=== PATIENT | male | born 1945 | race Caucasian/White ===

== ENCOUNTER 2017-09-22 17:53 | Emergency (ER) | payer MEDICARE, OTHER ==
[2017-09-22 18:04] VITALS: BP 131/88; PULSE 76; RESP 18; TEMP 98.2
--- NOTE | 2017-09-22 18:48 | ED ---
General Adult HPI - General Chief complaint: Head Injury Stated complaint: [facility]-Fall Time Seen by Provider: 09/22/17 18:12 Source: patient, RN notes reviewed Mode of arrival: ambulatory Limitations: no limitations - History of Present Illness Initial comments: 71-year-old male presents to the emergency determine for a chief complaint of head injury 1.5 hours. 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 Patient states he fell backwards onto the backpack vacuum and hit his head against the carpet floor. Patient denies any loss of consciousness. Patient denies any blood thinners besides the 81 mg baby aspirin. He shouldn't has a mild headache at this time. Patient denies any visual changes, nausea or vomiting, or confusion. Patient has no other complaints at this time including shortness of breath, chest pain, abdominal pain, nausea or vomiting, headache, or visual changes. - Related Data Home Medications Medication Instructions Recorded Confirmed Losartan Potassium [Cozaar] 100 mg PO DAILY 11/22/14 01/27/16 Omeprazole [PriLOSEC] 20 mg PO AC-BRKFST 11/22/14 01/27/16 Multivitamin [Men's Multi-Vitamin] 1 tab PO DAILY 08/13/15 01/27/16 [place]-3 Fatty Acids/Fish Oil [Fish 1 cap PO DAILY 08/13/15 01/27/16 Oil 1,000 mg Softgel] Vitamin B Complex 1 cap PO DAILY 08/13/15 01/27/16 Aspirin EC [Ecotrin Low Dose] 81 mg PO DAILY 01/27/16 01/27/16 Baclofen 10 mg PO TID 01/27/16 01/27/16 Glucosamine-Chondr 500-400Mg 2 tab PO DAILY 01/27/16 01/27/16 Hydrochlorothiazide [Hydrodiuril] 12.5 mg PO DAILY 01/27/16 01/27/16 Pravastatin Sodium [Pravachol] 40 mg PO DAILY 01/27/16 01/27/16 Primidone [Mysoline] 50 mg PO TID PRN 01/27/16 01/27/16 Tart Mcl[place] Extract 1 tab PO DAILY 01/27/16 01/27/16 Zolpidem [Ambien] 10 mg PO HS 01/27/16 01/27/16 Previous Rx's Medication Instructions Recorded Nitroglycerin Sl Tabs [Nitrostat] 0.4 mg SUBLINGUAL Q5M PRN #25 tab 11/29/14 Tamsulosin [Flomax] 0.4 mg PO HS cap.er.24h 11/29/14 Allergies Allergy/AdvReac Type Severity Reaction Status Date / Time No Known Allergies Allergy Verified 09/22/17 18:05 Review of Systems ROS Statement: Those systems with pertinent positive or pertinent negative responses have been documented in the HPI. ROS Other: All systems not noted in ROS Statement are negative. Past Medical History Past Medical History: Coronary Artery Disease (CAD), GERD/Reflux, Hyperlipidemia , Hypertension, Myocardial Infarction ([place]), Osteoarthritis (OA), Prostate Disorder Additional Past Medical History / Comment(s): HYPOGLYCEMIA Last Myocardial Infarction Date:: 2007 History of Any Multi-Drug Resistant Organisms: None Reported Past Surgical History: Back Surgery, Heart Catheterization With Stent, Orthopedic Surgery Additional Past Surgical History / Comment(s): HEART CATH X 3 WITH STENTS , DWIGHT. ROTATOR CUFF, LUMBAR BACK SURGERY,RIGHT KNEE SURGERY Past Anesthesia/Blood Transfusion Reactions: No Reported Reaction Additional Past Anesthesia/Blood Transfusion Reaction / Comment(s): PT IS ALERT AND PLEASANT, INDEPENDANT. LIVES AT HOME WITH HIS WHOM IS CURRENTLY UNDER HOSPICE CARE. 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 Date of Last Stent Placement:: 11/28/14 Past Psychological History: No Psychological Hx Reported Smoking Status: Never smoker Past Alcohol Use History: None Reported Past Drug Use History: None Reported - Past Family History Mother Family Medical History: No Reported History Additional Family Medical History / Comment(s): HX TB- HAD SURGERY TO REMOVED LUMP IN BREAST- PT NOT SURE IF CA OR NOT. General Exam Limitations: no limitations General appearance: alert, in no apparent distress Head exam: Present: normocephalic, normal inspection, other (There is a 2cm x 2 cm contusion on left superior posterior parietal scalp. Small abrasion noted over contusion. No lacerations. ) Eye exam: Present: normal appearance, PERRL, EOMI, other (negative raccoon sign) . Absent: scleral icterus, conjunctival injection, nystagmus, periorbital swelling, periorbital tenderness Pupils: Present: normal accommodation ENT exam: Present: normal exam, normal oropharynx (uvula midline), mucous membranes moist, TM's normal bilaterally (no hemotympanum ), normal external ear exam (negative lan sign) Neck exam: Present: normal inspection, full ROM. Absent: tenderness, meningismus, lymphadenopathy Respiratory exam: Present: normal lung sounds bilaterally. Absent: respiratory distress, wheezes, rales, rhonchi, stridor Cardiovascular Exam: Present: regular rate, normal rhythm, normal heart sounds. Absent: systolic murmur, diastolic murmur, rubs, gallop, clicks Extremities exam: Present: other (strength 5/5 in upper and lower extremities bilaterally. Negative arm drift. Shoulder shrug 5/5) Back exam: Present: normal inspection, full ROM. Absent: tenderness Neurological exam: Present: alert, oriented X3, CN II-XII intact, other (GCS 15) Psychiatric exam: Present: normal affect, normal mood Course Vital Signs 09/22/17 18:01 Temperature 98.2 F Pulse Rate 76 Respiratory 18 Rate Blood Pressure 131/88 O2 Sat by Pulse 99 Oximetry Medical Decision Making - Medical Decision Making 71-year-old male presents to the emergency department for chief complaint of head injury about 1.5 hours ago. Patient fell backwards wearing a backpack vacuum and hit his head on a carpeted floor. Patient did not lose consciousness. He denies any nausea vomiting, confusion, visual changes. He does have a mild headache. He does not use blood thinners. On exam no focal neuro deficits. Patient is sitting comfortably and communicating efficiently. He is pleasant. GCS 15. Or is a contusion on the left posterior superior parietal scalp with a small abrasion. No lacerations. I discussed the risks versus the benefits of CAT scan and patient agrees to have a CAT scan done to rule out any bleeds or fractures. CAT scan brain shows no acute intracranial hemorrhage, mass effect, or midline shift. CT c-spine shows no acute fracture or dislocation. Patient will be discharged home to monitor himself outpatient. He will monitor for any nausea vomiting, confusion, or severe headache and return if that occurs. Patient's daughter will help. He will take Tylenol for pain. He will follow up with primary care in 1-2 days. He is aware he can return to the emergency department if needed at all. Disposition Clinical Impression: Contusion of scalp, Closed head injury Disposition: HOME SELF-CARE Condition: Good Instructions: Concussion (ED), Head Injury (ED) Additional Instructions: Please take Tylenol for pain. Please monitor herself for any nausea vomiting confusion or other worsening symptoms. Return to the emergency department if you have any of these. Otherwise follow-up with primary care in 1-2 days. Is patient prescribed a controlled substance at d/c from ED?: No Referrals: Misha Brown MD [Primary Care Provider] - 1-2 days Time of Disposition: 19:02
--- NOTE | 2017-09-22 19:29 | CT ---
EXAMINATION TYPE: CT brain penelope degroot DATE OF EXAM: 09/22/2017 COMPARISON: NONE HISTORY: Fall, hematoma on left parietal area. CT DLP: 1416.8 mGycm Automated exposure control for dose reduction was used. TECHNIQUE: CT scan of the head and cervical spine are performed without contrast. FINDINGS: There is no acute intracranial hemorrhage, mass effect, or midline shift identified. The ventricles and sulci are within normal limits in size. The globes are intact and the visualized sin uses are clear. Cervical spine is visualized in its entirety from C1 through upper thoracic levels and demonstrates s atisfactory alignment without evidence of acute fracture or dislocation. Prevertebral soft tissue ap pears within normal limits. Moderately advanced multilevel cervical spondylosis changes are noted. Th e C1-C2 articulation is unremarkable. IMPRESSION: 1. There is no acute fracture or dislocation evident in the cervical spine. 2. No acute intracranial hemorrhage, mass effect, or midline shift is seen.
== END 2017-09-22 19:45 | disposition home or self-care (01) ==
LOC: EC 17:53
DX: S00.03XA Contusion of scalp, initial encounter (principal); R40.2410 Glasgow coma scale score 13-15, unspecified time; I25.10 Atherosclerotic heart disease of native coronary artery without angina pectoris; K21.9 Gastro-esophageal reflux disease without esophagitis; E78.5 Hyperlipidemia, unspecified; I10 Essential (primary) hypertension; I25.2 Old myocardial infarction; N42.9 Disorder of prostate, unspecified; Z79.82 Long term (current) use of aspirin; Z79.899 Other long term (current) drug therapy; Z95.5 Presence of coronary angioplasty implant and graft; W01.198A Fall on same level from slipping, tripping and stumbling with subsequent striking against other object, initial encounter; Y99.0 Civilian activity done for income or pay
CPT/HCPCS: 70450; 72125; 99283

== ENCOUNTER → 2018-03-24 | Outpatient (CLI) | payer MEDICARE ==
--- NOTE | 2018-03-24 09:59 | US ---
EXAMINATION TYPE: US carotid duplex BILAT DATE OF EXAM: 03/24/2018 COMPARISON: NONE CLINICAL HISTORY: I25.1Atherosclerotic heart disease of [place] coron. Syncope EXAM MEASUREMENTS: RIGHT: Peak Systolic Velocity (PSV) cm/sec ----- Right CCA: 89.5 ----- Right ICA: 80.1 ----- Right ECA: 106 ICA/CCA ratio: 0.9 RIGHT: End Diastole cm/sec ----- Right CCA: 19.3 ----- Right ICA: 26.1 ----- Right ECA: 12.6 LEFT: Peak Systolic Velocity (PSV) cm/sec ----- Left CCA: 131 ----- Left ICA: 91.7 ----- Left ECA: 94.1 ICA/CCA ratio: 0.7 LEFT: End Diastole cm/sec ----- Left CCA: 19.4 ----- Left ICA: 32.9 ----- Left ECA: 12.5 VERTEBRALS (direction of flow): Right Vertebral: Antegrade Left Vertebral: Antegrade Rhythm: Normal Mild amount of plaque visualized in right bulb. Elevated velocities visualized within the left tortuo us proximal CCA. IMPRESSION: No evidence for hemodynamically significant stenosis. Criteria for Assigning % of Stenosis / Diameter reduction (Estimation based on the indirect measurements of the internal carotid artery velocities (ICA PSV). 1. Normal (no stenosis)=ICA PSV < 125 cm/s: ratio < 2.0: ICA EDV<40 cm/s. 2. Less than 50% stenosis=ICA PSV < 125 cm/s: ratio < 2.0: ICA EDV<40 cm/s. 3. 50 to 69% stenosis=ICA PSV of 125 to 230 cm/s: ration 2.0 ? 4.0: ICA EDV 40-100 cm/s. 4. Greater than 70% stenosis to near occlusion= ICA PSV > 230 cm/s: ratio > 4.0: ICA EDV > 100 cm/s. 5. Near occlusion= ICA PSV velocities may be low or undetectable: variable ratio and ICA EDV. 6. Total occlusion=unable to detect flow.
== END | disposition home or self-care (01) ==
LOC: RADUSWWP 09:04
PROVIDERS: ATTEND Family Medicine
DX: I25.10 Atherosclerotic heart disease of native coronary artery without angina pectoris (principal); I10 Essential (primary) hypertension; R55 Syncope and collapse
CPT/HCPCS: 93880

== ENCOUNTER 2019-08-28 14:34 | Inpatient (IN) | payer MEDICARE, OTHER ==
[2019-08-28] MEDS ORDERED: NITROGLYCERIN SL TABS 0.4 MG TAB SUBLINGUAL PRN ×2 (14:44→16:23)
[2019-08-28] MEDS ORDERED: ATORVASTATIN 80 MG TAB PO STA (14:49)
[2019-08-28] MEDS ORDERED: NITROGLYCERIN OINT 1 INCH/GM PACKET TOPICAL STA (14:50)
[2019-08-28] MEDS ORDERED: HEPARIN SODIUM,PORCINE 5,000 UNIT/ML 1 ML VIAL IV ONE (14:50)
[2019-08-28] MEDS ORDERED: HEPARIN SODIUM,PORCINE 5,000 UNIT/ML 1 ML VIAL IV PRN (14:50)
[2019-08-28 14:52] LABS: Basophils # (A) 0.1 k/uL (0-0.2); Basophils % (A) 2 %; Eosinophils # (A) 0.2 k/uL (0-0.7); Eosinophils % (A) 3 %; HCT 43.2 % (39.0-53.0); HGB 14.1 gm/dL (13.0-17.5); Lymphocytes # (A) 1.5 k/uL (1.0-4.8); Lymphocytes % (A) 21 %; MCH 29.2 pg (25.0-35.0); MCHC 32.6 g/dL (31.0-37.0); MCV 89.5 fL (80.0-100.0); Mean Platelet Volume 8.7; Monocytes # (A) 0.4 k/uL (0-1.0); Monocytes % (A) 5 %; Neutrophils # (A) 4.7 k/uL (1.3-7.7); Neutrophils % (A) 66 %; Platelet Count 174 k/uL (150-450); RBC 4.83 m/uL (4.30-5.90); RDW 13.2 % (11.5-15.5)
[2019-08-28] MEDS ORDERED: METOPROLOL TARTRATE 25 MG TAB PO STA ×2 (14:53→22:25)
--- NOTE | 2019-08-28 15:01 | XR ---
EXAMINATION TYPE: XR chest 1V portable DATE OF EXAM: 08/28/2019 COMPARISON: Chest x-ray January 27, 2016. HISTORY: Chest pain. ST elevated myocardial infarction. TECHNIQUE: Single AP portable frontal upright view of the chest is obtained. Second derick out image saved to PACS. FINDINGS: There is chronic right pleural changes without suspicious new focal air space opacity, ple ural effusion, or pneumothorax seen. The cardiac silhouette size is stable and upper limits of [place] l without focal sclerotic changes aortic knob. Surgical changes right humeral head is present. Degene rative change bilateral shoulders is seen. IMPRESSION: Chronic changes without acute pulmonary process.
[2019-08-28 15:06] LABS: INR 0.9 (<1.2); Prothrombin Time 9.9 sec (9.0-12.0)
[2019-08-28 15:19] LABS: D-Dimer 1.32 mg/L FEU (<0.60)
[2019-08-28 15:29] LABS: Albumin 4.2 g/dL (3.5-5.0); Calcium 10.1 mg/dL (8.4-10.2); Potassium 4.1 mmol/L (3.5-5.1); Total Bilirubin 0.5 mg/dL (0.2-1.3); Total Protein 7.1 g/dL (6.3-8.2)
[2019-08-28] MEDS: HEPARIN SOD,PORK IN 0.45% NACL 25,000 UNIT in 0.45% NACL 1 250ML.BAG IV SCH (15:30)
--- NOTE | 2019-08-28 15:59 | ED ---
Chest Pain HPI - General Chief Complaint: Chest Pain Stated Complaint: STEMI Time Seen by Provider: 08/28/19 14:43 Source: patient, EMS, RN notes reviewed Mode of arrival: EMS Limitations: no limitations - History of Present Illness Initial Comments: This is a 73-year-old male with a history of prior heart disease with cardiac stents times for the last in 2014 who presents with complaints of the onset of retrosternal chest pain is started sometime after approximately 12:30 today initial report was that it started about 20 minutes prior to his arrival. Patient states the pain was 8/10-9/10 severity nonradiating he denies any shortness breath fevers chills or sweats he did state however that felt very similar to his previous cardiac events. EMS was called he was transported here he was given aspirin his EKG on the monitors done by paramedics showed evidence of ST depression in inferior leads with possible elevation in leads 1 and aVL. This does seem to improve with the second one. Upon arrival a patient at 5/10 pain. MD Complaint: chest pain - Related Data Home Medications Medication Instructions Recorded Confirmed Losartan Potassium [Cozaar] 100 mg PO DAILY 11/22/14 01/27/16 Omeprazole [PriLOSEC] 20 mg PO AC-BRKFST 11/22/14 01/27/16 Multivitamin [Men's Multi-Vitamin] 1 tab PO DAILY 08/13/15 01/27/16 [place]-3 Fatty Acids/Fish Oil [Fish 1 cap PO DAILY 08/13/15 01/27/16 Oil 1,000 mg Softgel] Vitamin B Complex 1 cap PO DAILY 08/13/15 01/27/16 Aspirin EC [Ecotrin Low Dose] 81 mg PO DAILY 01/27/16 01/27/16 Baclofen 10 mg PO TID 01/27/16 01/27/16 Glucosamine-Chondr 500-400Mg 2 tab PO DAILY 01/27/16 01/27/16 Hydrochlorothiazide [Hydrodiuril] 12.5 mg PO DAILY 01/27/16 01/27/16 Pravastatin Sodium [Pravachol] 40 mg PO DAILY 01/27/16 01/27/16 Primidone [Mysoline] 50 mg PO TID PRN 01/27/16 01/27/16 Tart Mcl[place] Extract 1 tab PO DAILY 01/27/16 01/27/16 Zolpidem [Ambien] 10 mg PO HS 01/27/16 01/27/16 Previous Rx's Medication Instructions Recorded Nitroglycerin Sl Tabs [Nitrostat] 0.4 mg SUBLINGUAL Q5M PRN #25 tab 11/29/14 Tamsulosin [Flomax] 0.4 mg PO HS cap.er.24h 11/29/14 Allergies Allergy/AdvReac Type Severity Reaction Status Date / Time No Known Allergies Allergy Verified 09/22/17 18:05 Review of Systems ROS Statement: Those systems with pertinent positive or pertinent negative responses have been documented in the HPI. ROS Other: All systems not noted in ROS Statement are negative. EKG Findings - EKG Results: EKG: interpreted by JAE, sinus rhythm (EKG showed normal sinus rhythm a 69. Interval 132 QRS duration 94 QT since QTC 44/432 no evidence of acute ST-T wave changes at this time this didn't correlate with EKG dated 01/27/16) Past Medical History Past Medical History: Coronary Artery Disease (CAD), GERD/Reflux, Hyperlipidemia, Hypertension, Myocardial Infarction ([place]), Osteoarthritis (OA), Prostate Disorder Additional Past Medical History / Comment(s): HYPOGLYCEMIA Last Myocardial Infarction Date:: 2007 History of Any Multi-Drug Resistant Organisms: None Reported Past Surgical History: Back Surgery, Heart Catheterization With Stent, Orthopedic Surgery Additional Past Surgical History / Comment(s): HEART CATH X 3 WITH STENTS , DWIGHT. ROTATOR CUFF, LUMBAR BACK SURGERY,RIGHT KNEE SURGERY Past Anesthesia/Blood Transfusion Reactions: No Reported Reaction Additional Past Anesthesia/Blood Transfusion Reaction / Comment(s): PT IS ALERT AND PLEASANT, INDEPENDANT. LIVES AT HOME WITH HIS WHOM IS CURRENTLY UNDER HOSPICE CARE. 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 Date of Last Stent Placement:: 11/28/14 Past Psychological History: No Psychological Hx Reported Smoking Status: Never smoker Past Alcohol Use History: None Reported Past Drug Use History: None Reported - Past Family History Mother Family Medical History: No Reported History Additional Family Medical History / Comment(s): HX TB- HAD SURGERY TO REMOVED LUMP IN BREAST- PT NOT SURE IF CA OR NOT. General Exam - General Exam Comments Initial Comments: This is a well-developed well-nourished awake alert oriented 3 male Limitations: no limitations General appearance: alert, anxious Head exam: Present: atraumatic, normocephalic, normal inspection Eye exam: Present: normal appearance, PERRL, EOMI. Absent: scleral icterus, conjunctival injection, periorbital swelling ENT exam: Present: normal exam, mucous membranes moist Neck exam: Present: normal inspection, full ROM, other (Stridor JVD or bruits). Absent: tenderness, meningismus, lymphadenopathy Respiratory exam: Present: normal lung sounds bilaterally. Absent: respiratory distress, wheezes, rales, rhonchi, stridor Cardiovascular Exam: Present: regular rate, normal rhythm, normal heart sounds. Absent: systolic murmur, diastolic murmur, rubs, gallop, clicks GI/Abdominal exam: Present: soft, normal bowel sounds. Absent: distended, tenderness, guarding, rebound, rigid Extremities exam: Present: normal inspection, full ROM, normal capillary refill. Absent: tenderness, pedal edema, joint swelling, calf tenderness Back exam: Present: normal inspection Neurological exam: Present: alert, oriented X3, CN II-XII intact Psychiatric exam: Present: normal affect, normal mood Skin exam: Present: warm, dry, intact, normal color. Absent: rash Course Vital Signs 08/28/19 08/28/19 14:41 14:57 Temperature 98.0 F Pulse Rate 74 69 Respiratory 18 18 Rate Blood Pressure 174/100 151/95 O2 Sat by Pulse 100 99 Oximetry - Reevaluation(s) Reevaluation #1: 08/28/19 15:57 Repeat EKG done approximately one half hour after arrival showed a sinus rhythm of 66. Interval 134 QRS duration 100 QT since QTC 44/423 evidence of LVH old inferior changes this actually looks similar to the earlier one today. Reevaluation #2: 08/28/19 16:22 Patient showing much improved no pain at this time his CAT scan was negative for evidence of pulmonary embolism. 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 Disposition Clinical Impression: Unstable angina pectoris, Chest pain Disposition: ADMITTED IP TO THIS [facility] Condition: Fair Referrals: Misha Brown MD [Primary Care Provider] - 1-2 days
--- NOTE | 2019-08-28 16:12 | CT ---
EXAMINATION TYPE: CT angio chest DATE OF EXAM: 08/28/2019 COMPARISON: Chest x-ray earlier today HISTORY: SOB, CHEST PAIN, ELEVATED D-DIMER CT DLP: 330.2 mGycm. Automated Exposure Control for Dose Reduction was Utilized. CONTRAST: CTA scan of the thorax is performed with IV Contrast, patient injected with 80 mL of Isovue 370, pulm onary embolism protocol. MIP Images are created on CT scanner and reviewed. FINDINGS: LUNGS: Examination was suboptimal as there is respiratory motion artifact degradation particularly in her level of lung bases. Dependent opacity over the fissures and lower lungs along with mild central opacity felt to reflect alveolar edema and atelectatic change is seen. No pleural effusion or pneumo thorax noted. No suspicious focal consolidation. MEDIASTINUM: There is satisfactory enhancement of the pulmonary artery and its branches, there is no CT evidence for pulmonary embolism. There are no greater than 1 cm hilar or mediastinal lymph nodes. Trace pericardial effusion is seen. Stable mild cardiomegaly. OTHER: Multilevel vacuum disc phenomenon and mild to moderate disc space narrowing or thoracolumbar j unction. Bilateral subareolar gynecomastia noted. IMPRESSION: No CT evidence for acute pulmonary embolism. Correlate for CHF exacerbation as there is m ild cardiomegaly with suspected mild central alveolar edema.
[2019-08-28] MEDS ORDERED: PRIMIDONE 50 MG TAB PO PRN (16:26)
[2019-08-28] MEDS: SODIUM CHLORIDE 0.9% 1,000 ML IV SCH (17:27)
[2019-08-28] MEDS: TAMSULOSIN 0.4 MG CAP.ER.24H PO SCH (20:32)
[2019-08-28] MEDS: BACLOFEN 10 MG TAB PO SCH (20:32)
[2019-08-28] MEDS: ZOLPIDEM 10 MG TAB PO SCH (20:32)
[2019-08-29] MEDS: HYDROCHLOROTHIAZIDE 12.5 MG CAP PO SCH (05:57)
[2019-08-29] MEDS: ASPIRIN 325 MG TAB PO SCH (05:58)
[2019-08-29] MEDS: LOSARTAN 50 MG TAB PO SCH (05:58)
[2019-08-29] MEDS: PANTOPRAZOLE 40 MG TABLET PO SCH (05:59)
[2019-08-29] MEDS: METOPROLOL TARTRATE 25 MG TAB PO SCH ×2 (05:59→19:36)
[2019-08-29] MEDS: BACLOFEN 10 MG TAB PO SCH ×3 (05:59→19:36)
[2019-08-29 06:37] LABS: Basophils % (A) 1 %; Eosinophils # (A) 0.3 k/uL (0-0.7); Eosinophils % (A) 6 %; HCT 40.4 % (39.0-53.0); HGB 13.7 gm/dL (13.0-17.5); Lymphocytes # (A) 1.2 k/uL (1.0-4.8); Lymphocytes % (A) 25 %; MCHC 33.8 g/dL (31.0-37.0); MCV 88.8 fL (80.0-100.0); Mean Platelet Volume 8.4; Monocytes # (A) 0.3 k/uL (0-1.0); Monocytes % (A) 5 %; Neutrophils # (A) 2.9 k/uL (1.3-7.7); Neutrophils % (A) 61 %; Platelet Count 164 k/uL (150-450); RBC 4.55 m/uL (4.30-5.90); RDW 13.3 % (11.5-15.5); WBC 4.8 k/uL (3.8-10.6)
[2019-08-29 08:18] LABS: Cholesterol 184 mg/dL (<200); HDL Cholesterol 52 mg/dL (40-60); LDL Cholesterol,Calculated 111 mg/dL (0-99); Triglycerides 107 mg/dL (<150)
[2019-08-29] MEDS ORDERED: ALPRAZolam 0.5 MG TAB PO PRN (08:30)
[2019-08-29] MEDS ORDERED: ATORVASTATIN 80 MG TAB PO STA (08:30)
[2019-08-29] MEDS ORDERED: NITROGLYCERIN SL TABS 0.4 MG TAB SUBLINGUAL PRN (08:30)
[2019-08-29] MEDS ORDERED: SODIUM CHLORIDE 0.9% 1,000 ML in EMPTY BAG 1 BAG IV ONE (08:30)
[2019-08-29] MEDS ORDERED: ALPRAZolam 0.25 MG TAB PO PRN (08:30)
[2019-08-29] MEDS ORDERED: ASPIRIN 325 MG TAB PO STA (08:30)
[2019-08-29] MEDS ORDERED: NON FORMULARY DRUG (Omega-3 Fatty Acids/Fish Oil [Fish Oil 1,000 Mg Softgel] 1 CAP) PO SCH (09:00)
[2019-08-29] MEDS ORDERED: PRAVASTATIN SODIUM 40 MG TAB PO SCH (09:00)
--- NOTE | 2019-08-29 10:31 | P.CRDCN ---
History of Present Illness Consult date: 08/29/19 Requesting physician: Fady Merrill Consult reason: non-Q-wave MS, chest pain Chief complaint: Chest pain History of present illness: This is a 73-year-old gentleman who follows regularly with Dr. Mendoza in the office. He has a known history of hypertension, hyperlipidemia, RCA stenting in 2010, circumflex stenting in 2014. He presented to the hospital with symptoms of chest pressure with radiation across the chest. Symptoms started around noon and persisted until around 4:00. He was seen in consultation by Dr. Smiley. His chest x-ray did not reveal any acute changes, CTA of the chest was performed which did not reveal any evidence of a PE. First EKG showed a normal sinus rhythm with no acute changes. Subsequent EKG showed normal sinus rhythm with mild inferior ST-T wave changes. White blood cell count 4.8, hemoglobin 13.7, platelet count 164. D-dimer 1.32. Sodium 134, potassium 4.1, BUN 28, creatinine 0.9. Troponin 0.02, 74.7, 18.4. Wall virus not detected. At the time of examination this morning patient was currently chest pain-free. A stat echocardiogram with Doppler study has been ordered and patient has been recommended to undergo cardiac catheterization. The risks and the benefits were explained to the patient in detail and he is willing to proceed. This will be performed today by Dr. Mendoza. Past Medical History Past Medical History: Coronary Artery Disease (CAD), GERD/Reflux, Hyperlipidemia, Hypertension, Myocardial Infarction (MS), Osteoarthritis (OA), Prostate Disorder Additional Past Medical History / Comment(s): HYPOGLYCEMIA Last Myocardial Infarction Date:: 2014 History of Any Multi-Drug Resistant Organisms: None Reported Past Surgical History: Back Surgery, Heart Catheterization With Stent, Or thopedic Surgery Additional Past Surgical History / Comment(s): HEART CATH X 3 WITH STENTS , DWIGHT. ROTATOR CUFF, LUMBAR BACK SURGERY,RIGHT KNEE SURGERY Past Anesthesia/Blood Transfusion Reactions: No Reported Reaction Additional Past Anesthesia/Blood Transfusion Reaction / Comment(s): PT IS ALERT AND PLEASANT, INDEPENDANT. LIVES AT HOME WITH HIS WHOM IS CURRENTLY UNDER HOSPICE CARE. 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 Date of Last Stent Placement:: 11/28/14 Past Psychological History: No Psychological Hx Reported Smoking Status: Never smoker Past Alcohol Use History: None Reported Past Drug Use History: None Reported - Past Family History Mother Family Medical History: No Reported History Additional Family Medical History / Comment(s): HX TB- HAD SURGERY TO REMOVED LUMP IN BREAST- PT NOT SURE IF CA OR NOT. Medications and Allergies Home Medications Medication Instructions Recorded Confirmed Type Losartan Potassium [Cozaar] 100 mg PO DAILY 11/22/14 08/28/19 History Tamsulosin [Flomax] 0.4 mg PO HS cap.er.24h 11/29/14 08/28/19 Rx Multivitamin [Men's Multi-Vitamin] 1 tab PO DAILY 08/13/15 08/28/19 History [place]-3 Fatty Acids/Fish Oil [Fish 1 cap PO DAILY 08/13/15 08/28/19 History Oil 1,000 mg Softgel] Vitamin B Complex 1 cap PO DAILY 08/13/15 08/28/19 History Aspirin EC [Ecotrin Low Dose] 81 mg PO DAILY 01/27/16 08/28/19 History Baclofen 10 mg PO TID 01/27/16 08/28/19 History Hydrochlorothiazide [Hydrodiuril] 12.5 mg PO DAILY 01/27/16 08/28/19 History Primidone [Mysoline] 50 mg PO TID PRN 01/27/16 08/28/19 History Ezetimibe [Zetia] 10 mg PO HS 08/28/19 08/28/19 History Glucosam/Fred-Msm1/C/Bert/Bosw 1 tab PO DAILY 08/28/19 08/28/19 History [Glucosamine-Chondroitin Tablet] Meloxicam [Mobic] 15 mg PO DAILY 08/28/19 08/28/19 History Omeprazole Magnesium [PriLOSEC OTC] 20 mg PO DAILY 08/28/19 08/28/19 History Allergies Allergy/AdvReac Type Severity Reaction Status Date / Time No Known Allergies Allergy Verified 08/28/19 17:18 Physical Exam Vitals: Vital Signs Temp Pulse Pulse Resp BP BP Pulse Ox 08/29/19 04:00 98.1 F 69 15 153/80 97 08/29/19 00:00 97.5 F L 67 17 143/79 97 08/28/19 20:00 98.2 F 67 17 129/71 98 08/28/19 17:00 65 20 140/82 99 08/28/19 16:55 98.2 F 67 15 129/71 98 08/28/19 16:30 65 17 131/69 08/28/19 16:00 70 17 133/79 99 08/28/19 15:30 73 17 130/77 08/28/19 15:00 73 18 151/95 100 08/28/19 14:57 69 18 151/95 99 08/28/19 14:41 98.0 F 74 18 174/100 100 08/28/19 14:40 86 L Intake and Output 08/28/19 08/29/19 08/29/19 22:59 06:59 14:59 Other: Voiding Method Toilet Toilet # Voids 1 Weight 72.575 kg 78 kg PHYSICAL EXAMINATION: GENERAL: 73-year-old gentleman in no acute distress at the time of my examination HEENT: Head is atraumatic, normocephalic. Pupils equal, round. Sclera anicteric. Conjunctiva are clear. Mucous membranes of the mouth are moist. Neck is supple. There is no elevated jugular venous pressure. No carotid bruit is heard. HEART EXAMINATION: Heart S1, S2 normal. No murmur or gallop heard. CHEST EXAMINATION: Lungs are clear to auscultation and precussion. No chest wall tenderness is noted on palpation or with deep breathing. ABDOMEN: Soft, nontender. Bowel sounds are heard. No organomegaly noted. EXTREMITIES: 2+ peripheral pulses with no evidence of peripheral edema and no calf tenderness noted. NEUROLOGIC patient is awake, alert and oriented 3 . . Results 08/29/19 06:10 08/28/19 14:40 Cardiac Enzymes 08/28/19 08/28/19 08/28/19 Range/Units 14:40 14:40 20:34 AST 33 (17-59) U/L Troponin I 0.020 24.700 H* (0.000-0.034) ng/mL 08/29/19 Range/Units 02:03 AST (17-59) U/L Troponin I 18.400 H* (0.000-0.034) ng/mL Coagulation 08/28/19 08/28/19 08/29/19 Range/Units 14:40 20:34 06:10 PT 9.9 (9.0-12.0) sec APTT 24.0 63.2 H 55.9 H (22.0-30.0) sec Lipids 08/29/19 Range/Units 06:10 Triglycerides 107 (<150) mg/dL Cholesterol 184 (<200) mg/dL HDL Cholesterol 52 (40-60) mg/dL CBC 08/28/19 08/29/19 Range/Units 14:40 06:10 WBC 7.0 4.8 (3.8-10.6) k/uL RBC 4.83 4.55 (4.30-5.90) m/uL Hgb 14.1 13.7 (13.0-17.5) gm/dL Hct 43.2 40.4 (39.0-53.0) % Plt Count 174 164 (150-450) k/uL Comprehensive Metabolic Panel 08/28/19 Range/Units 14:40 Sodium 134 L (137-145) mmol/L Potassium 4.1 (3.5-5.1) mmol/L Chloride 100 (98-107) mmol/L Carbon Dioxide 24 (22-30) mmol/L BUN 28 H (9-20) mg/dL Creatinine 0.98 (0.66-1.25) mg/dL Glucose 121 H (74-99) mg/dL Calcium 10.1 (8.4-10.2) mg/dL AST 33 (17-59) U/L ALT 20 (4-49) U/L Alkaline Phosphatase 67 (38-126) U/L Total Protein 7.1 (6.3-8.2) g/dL Albumin 4.2 (3.5-5.0) g/dL Current Medications Generic Name Dose Route Start Last Admin Trade Name Freq PRN Reason Stop Dose Admin Alprazolam 0.25 mg 08/29/19 08:30 Xanax PO Q6HR PRN Mild Anxiety Alprazolam 0.5 mg 08/29/19 08:30 Xanax PO Q6HR PRN Moderate Anxiety Aspirin 325 mg 08/29/19 09:00 08/29/19 05:58 Aspirin PO 325 mg DAILY SAVANNAH Administration Baclofen 10 mg 08/28/19 22:00 08/29/19 05:59 Lioresal PO 10 mg TID SAVANNAH Administration Heparin Sodium (Porcine) 0 unit 08/28/19 14:50 Heparin IV PER PROTOCOL PRN Low PTT Protocol Hydrochlorothiazide 12.5 mg 08/29/19 09:00 08/29/19 05:57 Hydrodiuril PO 12.5 mg DAILY SAVANNAH Administration Heparin Sodium/Sodium Chloride 250 mls @ 8.709 mls/hr 08/28/19 15:00 08/28/19 15:30 25,000 unit/ Sodium Chloride IV 12 units/kg/hr .Q24H SAVANNAH 8.709 mls/hr Administration Protocol 12 UNITS/KG/HR Sodium Chloride 1,000 mls @ 20 mls/hr 08/28/19 16:30 08/28/19 17:27 Saline 0.9% IV 20 mls/hr .Q24H SAVANNAH Administration Sodium Chloride 1,000 ml/ IV 1,000 mls @ 78 mls/hr 08/29/19 08:30 08/29/19 09:15 Solution IV 08/29/19 21:19 78 mls/hr .[id number] ONE Administration 1 ML/KG/HR Losartan Potassium 100 mg 08/29/19 09:00 08/29/19 05:58 Cozaar PO 100 mg DAILY SAVANNAH Administration Metoprolol Tartrate 25 mg 08/29/19 09:00 08/29/19 05:59 Lopressor PO 25 mg BID SAVANNAH Administration Nitroglycerin 0.4 mg 08/28/19 16:23 Nitrostat SUBLINGUAL Q5M PRN Chest Pain Nitroglycerin 0.4 mg 08/29/19 08:30 Nitrostat SUBLINGUAL Q5M PRN Chest Pain Pantoprazole Sodium 40 mg 08/29/19 07:30 08/29/19 05:59 Protonix PO 40 mg [id number] SAVANNAH Administration Pravastatin Sodium 40 mg 08/29/19 09:00 08/29/19 05:58 Pravachol PO 40 mg DAILY SAVANNAH Administration Primidone 50 mg 08/28/19 16:26 Mysoline PO TID PRN HAND TREMBLING Tamsulosin HCl 0.4 mg 08/28/19 21:00 08/28/19 20:32 Flomax PO 0.4 mg HS SAVANNAH Administration Zolpidem Tartrate 10 mg 08/28/19 21:00 08/28/19 20:32 Ambien PO 10 mg HS SAVANNAH Administration Intake and Output 08/28/19 08/29/19 08/29/19 22:59 06:59 14:59 Other: Voiding Method Toilet Toilet # Voids 1 Weight 72.575 kg 78 kg 08/29/19 06:10 08/28/19 14:40 EKG Interpretations (text) EKG showed a normal sinus rhythm with no acute changes, subsequent EKG showed normal sinus rhythm with mild inferior ST-T wave changes. Assessment and Plan Plan: Assessment and plan #1 non-ST elevation myocardial infarction #2 history of coronary artery disease with prior RCA and circumflex stenting #3 hypertension #4 hyperlipidemia Plan We will obtain a stat echocardiogram with Doppler study. Continue aspirin, Lipitor, metoprolol. She has been advised to undergo cardiac catheterization, the risks and the benefits were explained to the patient in detail. This will be performed today by Dr. Duncan and further recommendations will be based on these findings and the patient's overall clinical course. DNP note has been reviewed, I agree with a documented findings and plan of care. Patient was seen and examined.
--- NOTE | 2019-08-29 12:11 | P.HPIM ---
History of Present Illness Patient is on-year-old pleasant gentleman came in with compensative chest pain radiating across the chest pressure-like sensation no associated nausea and diaphoresis but patient believes he may have some acid reflux to to take some Tums which did not help him moderate severity exertional when he is moving furniture, lasted for 4 hours, nonpleuritic not associated with food denied any shortness of breath lightheadedness or diaphoresis associated with that. Patient had inferior wall ST-T wave changes also in significant on the EKG. Second set of troponin is very high at 6 went up to around 16 patient had mildly elevated d-dimer because of which patient had a CT angios the chest which showed pulmonary edema. Patient has known carotid artery disease with multiple stents in the past. Patient clinically is not in heart failure exacerbation. COVID 19 was ruled out. Review of Systems REVIEW OF SYSTEMS: CONSTITUTIONAL: No fever, no malaise, no fatigue. HEENT: No recent visual problems or hearing problems. Denied any sore throat. CARDIOVASCULAR: No orthopnea, PND, no palpitations, no syncope. PULMONARY: No shortness of breath, no cough, no hemoptysis. GASTROINTESTINAL: No diarrhea, no nausea, no vomiting, no abdominal pain. NEUROLOGICAL: No headaches, no weakness, no numbness. HEMATOLOGICAL: Denies any bleeding or petechiae. GENITOURINARY: Denies any burning micturition, frequency, or urgency. MUSCULOSKELETAL/RHEUMATOLOGICAL: Denies any joint pain, swelling, or any muscle pain. ENDOCRINE: Denies any polyuria or polydipsia. The rest of the 14-point review of systems is negative. Past Medical History Past Medical History: Coronary Artery Disease (CAD), GERD/Reflux, Hyperlipidemia, Hypertension, Myocardial Infarction (IN), Osteoarthritis (OA), Prostate Disorder Additional Past Medical History / Comment(s): HYPOGLYCEMIA Last Myocardial Infarction Date:: 2014 History of Any Multi-Drug Resistant Organisms: None Reported Past Surgical History: Back Surgery, Heart Catheterization With Stent, Orthopedic Surgery Additional Past Surgical History / Comment(s): HEART CATH X 3 WITH STENTS , DWIGHT. ROTATOR CUFF, LUMBAR BACK SURGERY,RIGHT KNEE SURGERY Past Anesthesia/Blood Transfusion Reactions: No Reported Reaction Additional Past Anesthesia/Blood Transfusion Reaction / Comment(s): PT IS ALERT AND PLEASANT, INDEPENDANT. LIVES AT HOME WITH HIS WHOM IS CURRENTLY UNDER HOSPICE CARE. 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 Date of Last Stent Placement:: 11/28/14 Past Psychological History: No Psychological Hx Reported Smoking Status: Never smoker Past Alcohol Use History: None Reported Past Drug Use History: None Reported - Past Family History Mother Family Medical History: No Reported History Additional Family Medical History / Comment(s): HX TB- HAD SURGERY TO REMOVED LUMP IN BREAST- PT NOT SURE IF CA OR NOT. Medications and Allergies Home Medications Medication Instructions Recorded Confirmed Type Losartan Potassium [Cozaar] 100 mg PO DAILY 11/22/14 08/28/19 History Tamsulosin [Flomax] 0.4 mg PO HS cap.er.24h 11/29/14 08/28/19 Rx Multivitamin [Men's Multi-Vitamin] 1 tab PO DAILY 08/13/15 08/28/19 History [place]-3 Fatty Acids/Fish Oil [Fish 1 cap PO DAILY 08/13/15 08/28/19 History Oil 1,000 mg Softgel] Vitamin B Complex 1 cap PO DAILY 08/13/15 08/28/19 History Aspirin EC [Ecotrin Low Dose] 81 mg PO DAILY 01/27/16 08/28/19 History Baclofen 10 mg PO TID 01/27/16 08/28/19 History Hydrochlorothiazide [Hydrodiuril] 12.5 mg PO DAILY 01/27/16 08/28/19 History Primidone [Mysoline] 50 mg PO TID PRN 01/27/16 08/28/19 History Ezetimibe [Zetia] 10 mg PO HS 08/28/19 08/28/19 History Glucosam/Fred-Msm1/C/Bert/Bosw 1 tab PO DAILY 08/28/19 08/28/19 History [Glucosamine-Chondroitin Tablet] Meloxicam [Mobic] 15 mg PO DAILY 08/28/19 08/28/19 History Omeprazole Magnesium [PriLOSEC OTC] 20 mg PO DAILY 08/28/19 08/28/19 History Allergies Allergy/AdvReac Type Severity Reaction Status Date / Time No Known Allergies Allergy Verified 08/28/19 17:18 Physical Exam Vitals: Vital Signs Temp Pulse Pulse Resp BP BP Pulse Ox 08/29/19 04:00 98.1 F 69 15 153/80 97 08/29/19 00:00 97.5 F L 67 17 143/79 97 08/28/19 20:00 98.2 F 67 17 129/71 98 08/28/19 17:00 65 20 140/82 99 08/28/19 16:55 98.2 F 67 15 129/71 98 08/28/19 16:30 65 17 131/69 08/28/19 16:00 70 17 133/79 99 08/28/19 15:30 73 17 130/77 08/28/19 15:00 73 18 151/95 100 08/28/19 14:57 69 18 151/95 99 08/28/19 14:41 98.0 F 74 18 174/100 100 08/28/19 14:40 86 L Intake and Output 08/28/19 08/29/19 08/29/19 22:59 06:59 14:59 Other: Voiding Method Toilet Toilet # Voids 1 Weight 72.575 kg 78 kg PHYSICAL EXAMINATION: GENERAL: The patient is alert and oriented x3, not in any acute distress. Well developed, well nourished. HEENT: Pupils are round and equally reacting to light. EOMI. No scleral icterus. No conjunctival pallor. Normocephalic, atraumatic. No pharyngeal erythema. No thyromegaly. CARDIOVASCULAR: S1 and S2 present. No murmurs, rubs, or gallops. PULMONARY: Chest is clear to auscultation, no wheezing or crackles. ABDOMEN: Soft, nontender, nondistended, normoactive bowel sounds. No palpable organomegaly. MUSCULOSKELETAL: No joint swelling or deformity. EXTREMITIES: No cyanosis, clubbing, or pedal edema. NEUROLOGICAL: Gross neurological examination did not reveal any focal deficits. SKIN: No rashes. Results CBC & Chem 7: 08/29/19 06:10 08/28/19 14:40 Labs: Abnormal Lab Results - Last 24 Hours (Table) 08/28/19 08/28/19 08/28/19 Range/Units 14:40 14:40 20:34 APTT 63.2 H (22.0-30.0) sec D-Dimer 1.32 H (<0.60) mg/L FEU Sodium 134 L (137-145) mmol/L BUN 28 H (9-20) mg/dL Glucose 121 H (74-99) mg/dL Troponin I (0.000-0.034) ng/mL LDL Cholesterol, Calc (0-99) mg/dL 08/28/19 08/29/19 08/29/19 Range/Units 20:34 02:03 06:10 APTT (22.0-30.0) sec D-Dimer (<0.60) mg/L FEU Sodium (137-145) mmol/L BUN (9-20) mg/dL Glucose (74-99) mg/dL Troponin I 24.700 H* 18.400 H* (0.000-0.034) ng/mL LDL Cholesterol, Calc 111 H (0-99) mg/dL 08/29/19 Range/Units 06:10 APTT 55.9 H (22.0-30.0) sec D-Dimer (<0.60) mg/L FEU Sodium (137-145) mmol/L BUN (9-20) mg/dL Glucose (74-99) mg/dL Troponin I (0.000-0.034) ng/mL LDL Cholesterol, Calc (0-99) mg/dL Thrombosis Risk Factor Assmnt - Choose All That Apply Other Risk Factors: Yes Each Risk Factor Represents 3 Points: Age 75 years or older Other congenital or acquired thrombophilia - If yes, enter type in comment: No Thrombosis Risk Factor Assessment Total Risk Factor Score: 3 Thrombosis Risk Factor Assessment Level: Moderate Risk Assessment and Plan Plan: Acute non-ST elevation myocardial infarction continue with aspirin and Lipitor metoprolol, IV heparin patient will undergo cardiac catheterization today patient may have inferior wall myocardial infarction -Could not disease with multiple stents in the past -Possible acute systolic heart failure without any pulmonary edema or acute exacerbation. This is probably related to the acute [place] -Hypertension -Hyperlipidemia -Benign prostatic hypertrophy For above-mentioned chronic medical problems patient will be started on appropriate home medications
--- NOTE | 2019-08-29 12:44 | ECHOF ---
Referral Reason:assess lvf MEASUREMENTS -------- HEIGHT: 170.2 cm WEIGHT: 77.6 kg BP: 153/80 RVIDd: 3.4 cm (< 3.3) IVSd: 1.4 cm (0.6 - 1.1) LVIDd: 4.5 cm (3.9 - 5.3) LVPWd: 1.3 cm (0.6 - 1.1) IVSs: 1.8 cm LVIDs: 2.6 cm LVPWs: 1.7 cm LA Diam: 3.7 cm (2.7 - 3.8) LAESV Index (A-L): 23.44 ml/m Ao Diam: 3.3 cm (2.0 - 3.7) AV Cusp: 1.7 cm (1.5 - 2.6) MV EXCURSION: 19.089 mm (> 18.000) MV EF SLOPE: 79 mm/s (70 - 150) EPSS: 0.8 cm MV E Jak: 0.59 m/s MV DecT: 313 ms MV A Jak: 0.79 m/s MV E/A Ratio: 0.75 RAP: 5.00 mmHg RVSP: 16.53 mmHg FINDINGS -------- Sinus rhythm. Suboptimal image quality - poor subcostal views. The left ventricular size is normal. There is moderate concentric left ventricular hypertrophy. O verall left ventricular systolic function is mildly impaired with, an EF between 45 - 50 %. Basal i nferior LV wall motion is hypokinetic. Basal inferoseptal LV wall motion is hypokinetic. Mid la teral LV wall motion is normal. Apical lateral LV wall motion is normal. The right ventricle is mildly enlarged. Normal LA size by volume 22+/-6 ml/m2. The right atrium is normal in size. Interatrial and interventricular septum intact. There is mild aortic valve sclerosis. The mitral valve leaflets are mildly thickened. Mild mitral annular calcification present. Mild m itral regurgitation is present. Trace tricuspid regurgitation present. There is no pulmonic regurgitation present. The aortic root size is normal. Normal inferior vena cava with normal inspiratory collapse consistent with estimated right atrial pre ssure of 5 mmHg. There is no pericardial effusion. CONCLUSIONS -------- 1. Sinus rhythm. 2. Suboptimal image quality - poor subcostal views. 3. The left ventricular size is normal. 4. There is moderate concentric left ventricular hypertrophy. 5. Overall left ventricular systolic function is mildly impaired with, an EF between 45 - 50 %. 6. Basal inferior LV wall motion is hypokinetic. 7. Basal inferoseptal LV wall motion is hypokinetic. 8. Mid lateral LV wall motion is normal. 9. Apical lateral LV wall motion is normal. 10. The right ventricle is mildly enlarged. 11. Normal LA size by volume 22+/-6 ml/m2. 12. The right atrium is normal in size. 13. Interatrial and interventricular septum intact. 14. There is mild aortic valve sclerosis. 15. The mitral valve leaflets are mildly thickened. 16. Mild mitral annular calcification present. 17. Mild mitral regurgitation is present. 18. Trace tricuspid regurgitation present. 19. There is no pulmonic regurgitation present. 20. The aortic root size is normal. 21. Normal inferior vena cava with normal inspiratory collapse consistent with estimated right atrial pressure of 5 mmHg. 22. There is no pericardial effusion. BRIDGE MAINTAINER: Genny Marsh RDCS
[2019-08-29] MEDS ORDERED: IV FLUID CONTINUATION 900 ML IV ONE (13:41)
[2019-08-29] MEDS ORDERED: fentaNYL (PF) 50 MCG/ML 2 ML AMP IV ONE (13:41)
[2019-08-29] MEDS ORDERED: MIDAZOLAM 2 MG/2 ML VIAL IV ONE (13:41)
[2019-08-29] MEDS ORDERED: LIDOCAINE 1% INJ 10MG/ML (20 ML MDV) SQ ONE (13:41)
[2019-08-29] MEDS ORDERED: BIVALIRUDIN BOLUS 250 MG/50 ML IV ONE (14:25)
[2019-08-29] MEDS ORDERED: BIVALIRUDIN 250 MG in SODIUM CHLORIDE 0.9% 38 ML IV ONE (14:26)
[2019-08-29] MEDS ORDERED: IOPAMIDOL-370 125ML BTL INJ ONE (14:39)
[2019-08-29] MEDS ORDERED: NITROGLYCERIN 1000MCG/10ML SYRINGE INTRACORON ONE (14:43)
[2019-08-29] MEDS ORDERED: IOPAMIDOL-370 100ML BTL INJ ONE (14:44)
[2019-08-29] MEDS ORDERED: CLOPIDOGREL 75 MG TAB PO ONE (14:52)
[2019-08-29] MEDS ORDERED: MAG HYDROX/AL HYDROX/SIMETH 30 ML CUP PO PRN (14:58)
[2019-08-29] MEDS ORDERED: ATROPINE SULFATE 0.1 MG/ML 10ML SYRINGE IV PRN (14:58)
[2019-08-29] MEDS ORDERED: RX INFO: IV CONTRAST WAS GIVEN 1 EACH MISC MISCELLANE PRN (14:58)
--- NOTE | 2019-08-29 17:40 | CC ---
CARDIAC CATHETERIZATION REPORT INDICATION: Acute [id number]-elevation ID. PROCEDURE NOTE: After obtaining informed consent, left heart catheterization and coronary angiogram are performed via right femoral artery using standard Kathy catheters. The patient tolerated the procedure well without any operative complications. The patient received moderate conscious sedation. Total sedation time was 17 minutes. FINDINGS: HEMODYNAMICS: Left ventricular end-diastolic pressure is 8 mm. There is no significant gradient across the aortic valve. LEFT VENTRICULOGRAM: Left ventriculogram was not performed. ANGIOGRAPHIC DATA: 1. Left main coronary artery is a normal-sized vessel; appears calcified. There is mild distal left main clot. Divides into left anterior descending coronary artery and circumflex coronary artery. 2. Circumflex coronary artery is a dominant vessel showing mild nonobstructive CAD. 3. LAD gives off a large-caliber diagonal branch, and the diagonal branch has a 70% to 80% stenosis. There is moderate atherosclerotic plaque in the LAD. 4. Right coronary artery is a large dominant vessel with a previously stented segment within the proximal and mid RCA. The stent itself appears patent. In the proximal RCA there seems to be a 60% to 70% stenosis. CONCLUSION: Two-vessel coronary artery disease as described above. PLAN: I am going to review the angiographic data with Dr. Rosy Alva, the on-call sound effects manager, and decide on catheter-based revascularization of the diagonal. MMODL / IJN: [id number] /
[2019-08-29] MEDS: SODIUM CHLORIDE 0.9% 1,000 ML IV SCH ×2 (17:52→18:00)
[2019-08-29] MEDS: HEPARIN SOD,PORK IN 0.45% NACL 25,000 UNIT in 0.45% NACL 1 250ML.BAG IV SCH (18:40)
[2019-08-29] MEDS ORDERED: ACETAMINOPHEN TAB 325 MG TAB PO PRN (18:41)
[2019-08-29] MEDS ORDERED: MORPHINE SULFATE 2 MG/ML SYRINGE IVP ONE (18:42)
--- NOTE | 2019-08-29 18:55 | PTCA ---
PERCUTANEOUSTRANS CORORONARY ANGIOGRAPHY DATE OF SERVICE: 08/29/2019. PROCEDURE: Percutaneous transluminal coronary angioplasty and stenting of major diagonal branch of left anterior descending coronary artery. PERFORMED BY: Dr. Rosy Alva. Moderate conscious sedation time was 31 minutes. Patient was administered Versed. Oxygen saturation, hemodynamics and EKG were monitored closely. CLINICAL INFORMATION: Mr. Magnus Theodore is a 73-year-old gentleman with a known history of CAD, hypertension, hyperlipidemia. In 2014 I performed stenting of a major obtuse marginal branch of circumflex with excellent result. Prior to that he had RCA stenting, and both these vessels were patent in 2016. He presented to the hospital with chest pain, had a troponin elevation without clear-cut EKG changes. Dr. Duncan performed cardiac cath which revealed a patent circumflex marginal without significant disease. RCA was heavily calcified, had about a 50% to 55% narrowing with very good flow. LAD was free of significant disease with moderate calcification. Major diagonal had an 80% to 90% eccentric lesion after it came off from the LAD and then it bifurcated again into 2 branches, a small superior and a larger inferior branch. This appeared to be the culprit lesion, and immediately after the bifurcation there was a haziness which was suggestive of thrombus. He was advised intervention that was performed in the same setting. PROCEDURE NOTE: The existing 6-Tamazight introducer was used to perform the procedure. A JL3.5 catheter was used to cannulate the left coronary artery. A run-through wire was used to cross the lesion. Pre-dilatation was performed with a 2.5 caliber, 12 mm Trek balloon. I then deployed a 15 mm long, 2.5 caliber Xience stent at 12 atmospheres. Patient had chest pain and ST elevation in I and aVL. Excellent angiographic result without complication was achieved. He received Angiomax bolus and infusion and also received 600 mg of Plavix. The results were discussed with the patient as well as his son by phone. The sheath was then taken out and Angio-Seal device used to secure hemostasis. He was sent to the room in stable condition. Excellent angiographic result without complication was achieved. I expect the patient to be discharged in the next 24 to 48 hours. MMODL / IJN: [id number] /
[2019-08-29] MEDS: ATORVASTATIN 40 MG TAB PO SCH (19:35)
[2019-08-29] MEDS: TAMSULOSIN 0.4 MG CAP.ER.24H PO SCH (19:35)
[2019-08-29] MEDS: ZOLPIDEM 10 MG TAB PO SCH (19:36)
[2019-08-30] MEDS: SODIUM CHLORIDE 0.9% 1,000 ML IV SCH ×2 (04:22→17:18)
[2019-08-30] MEDS: PANTOPRAZOLE 40 MG TABLET PO SCH (06:06)
[2019-08-30 07:17] LABS: African American GFR (CKD) >90 (>60 ml/min/1.73 sqM); Anion Gap 7 mmol/L; Blood Urea Nitrogen 18 mg/dL (9-20); Calcium 8.8 mg/dL (8.4-10.2); Carbon Dioxide 23 mmol/L (22-30); Chloride 105 mmol/L (98-107); Glucose 88 mg/dL (74-99); Non-African American GFR(CKD) 90 (>60 ml/min/1.73 sqM); Potassium 3.8 mmol/L (3.5-5.1); Sodium 135 mmol/L (137-145)
[2019-08-30] MEDS: LOSARTAN 50 MG TAB PO SCH (07:58)
[2019-08-30] MEDS: BACLOFEN 10 MG TAB PO SCH ×3 (07:58→21:00)
[2019-08-30] MEDS: HYDROCHLOROTHIAZIDE 12.5 MG CAP PO SCH (07:58)
[2019-08-30] MEDS: ASPIRIN 325 MG TAB PO SCH (07:58)
[2019-08-30] MEDS: CLOPIDOGREL 75 MG TAB PO SCH (07:58)
[2019-08-30] MEDS: METOPROLOL TARTRATE 25 MG TAB PO SCH ×2 (07:59→21:00)
[2019-08-30 09:58] VITALS: BMI 25.5
--- NOTE | 2019-08-30 14:19 | P.PN ---
Subjective 72-year-old pleasant gentleman is admitted for non-ST elevation myocardial infarction patient underwent cardiac catheterization found to have significant stenosis in the obtuse marginal branch of LAD which was stented. Patient has decreased ejection fraction of 45-50%. Patient is clinically doing well is chest pain-free no shortness of breath. Constitutional: Denied any fatigue denied any fever. Cardio vascular: denied any chest pain, palpitations Gastrointestinal denied any nausea vomiting Pulmonary: Denied any shortness of breath cough Neurologic denied any new focal deficits All inpatient medications were reviewed and appropriate changes in these medications as dictated in the interval history and assessment and plan. Objective - Vital Signs Vital signs: Vital Signs Temp 98.2 F 08/30/19 08:00 Pulse 78 08/30/19 08:00 Resp 16 08/30/19 08:00 BP 152/76 08/30/19 08:00 Pulse Ox 95 08/30/19 08:00 Intake & Output 08/29/19 08/30/19 08/30/19 18:59 06:59 18:59 Intake Total 622.745 240 240 Output Total 350 450 Balance 272.745 -210 240 Weight 74 kg 74 kg Intake: IV 218 Intake, IV Titration 164.745 Amount Heparin Sod,Pork in 0.45% 164.745 NaCl 25,000 unit In 0.45 % NaCl 1 250ml.bag @ 12 UNITS/KG/HR 8.709 mls/hr IV .Q24H [facility] Rx#: [id number] Oral 240 240 240 Output: Urine 350 450 Other: # Voids 1 2 1 - Exam PHYSICAL EXAMINATION: GENERAL: The patient is alert and oriented x3, not in any acute distress. Obese HEENT: Pupils are round and equally reacting to light. EOMI. No scleral icterus. No conjunctival pallor. Normocephalic, atraumatic. No pharyngeal erythema. No thyromegaly. CARDIOVASCULAR: S1 and S2 present. No murmurs, rubs, or gallops. PULMONARY: Chest is clear to auscultation, no wheezing or crackles. ABDOMEN: Soft, nontender, nondistended, normoactive bowel sounds. No palpable organomegaly. MUSCULOSKELETAL: No joint swelling or deformity. EXTREMITIES: No cyanosis, clubbing, or pedal edema. NEUROLOGICAL: Gross neurological examination did not reveal any focal deficits. SKIN: No rashes. - Labs CBC & Chem 7: 05/06/20 06:10 08/30/19 06:09 Labs: Abnormal Lab Results - Last 24 Hours (Table) 08/30/19 Range/Units 06:09 Sodium 135 L (137-145) mmol/L Assessment and Plan Plan: Acute non-ST elevation myocardial infarction patient is status post cardiac catheterization and stenting of major diagonal branch of LAD continue with aspirin and Lipitor metoprolol. -Coronary artery disease with multiple stents in the past -Possible acute systolic heart failure without any pulmonary edema or acute exacerbation. This is probably related to the acute PA -Hypertension -Hyperlipidemia -Benign prostatic hypertrophy For above-mentioned chronic medical problems patient will be started on appropriate home medications
--- NOTE | 2019-08-30 14:31 | P.PN ---
Subjective Progress Note Date: 08/30/19 This is a 73-year-old gentleman who follows regularly with Dr. Mnedoza in the office. He has a known history of hypertension, hyperlipidemia, RCA stenting in 2010, circumflex stenting in 2014. He presented to the hospital with symptoms of chest pressure with radiation across the chest. Symptoms started around noon and persisted until around 4:00. He was seen in consultation by Dr. Smiley. His chest x-ray did not reveal any acute changes, CTA of the chest was performed which did not reveal any evidence of a PE. First EKG showed a normal sinus rhythm with no acute changes. Subsequent EKG showed normal sinus rhythm with mild inferior ST-T wave changes. White blood cell count 4.8, hemoglobin 13.7, platelet count 164. D-dimer 1.32. Sodium 134, potassium 4.1, BUN 28, creatinine 0.9. Troponin 0.02, 74.7, 18.4. Wall virus not detected. At the time of examination this morning patient was currently chest pain-free. A stat echocardiogram with Doppler study has been ordered and patient has been recommended to undergo cardiac catheterization. The risks and the benefits were explained to the patient in detail and he is willing to proceed. This will be performed today by Dr. Duncan. August 2910/2019 Patient was taken to the cardiac catheterization lab yesterday underwent angioplasty and stenting of the LAD. He was seen and examined this morning, denied any chest discomfort. Blood pressure 130/70 with a heart rate in the 70s, 94% on room air. Sodium 135, potassium 3.8, BUN 18 and creatinine 0.7. Objective - Vital Signs Vital signs: Vital Signs Temp 98.2 F 08/30/19 08:00 Pulse 78 08/30/19 08:00 Resp 16 08/30/19 08:00 BP 152/76 08/30/19 08:00 Pulse Ox 95 08/30/19 08:00 Intake & Output 08/29/19 08/30/19 08/30/19 18:59 06:59 18:59 Intake Total 622.745 240 240 Output Total 350 450 Balance 272.745 -210 240 Weight 74 kg 74 kg Intake: IV 218 Intake, IV Titration 164.745 Amount Heparin Sod,Pork in 0.45% 164.745 NaCl 25,000 unit In 0.45 % NaCl 1 250ml.bag @ 12 UNITS/KG/HR 8.709 mls/hr IV .Q24H [facility] Rx#: [id number] Oral 240 240 240 Output: Urine 350 450 Other: # Voids 1 2 1 - Exam PHYSICAL EXAMINATION: GENERAL: 73-year-old gentleman in no acute distress at the time of my examination HEENT: Head is atraumatic, normocephalic. Pupils equal, round. Sclera anicteric. Conjunctiva are clear. Mucous membranes of the mouth are moist. Neck is supple. There is no elevated jugular venous pressure. No carotid bruit is heard. HEART EXAMINATION: Heart S1, S2 normal. No murmur or gallop heard. CHEST EXAMINATION: Lungs are clear to auscultation and precussion. No chest wall tenderness is noted on palpation or with deep breathing. ABDOMEN: Soft, nontender. Bowel sounds are heard. No organomegaly noted. EXTREMITIES: 2+ peripheral pulses with no evidence of peripheral edema and no calf tenderness noted. Right groin soft, no evidence of any hematoma. NEUROLOGIC patient is awake, alert and oriented 3 . . - Labs CBC & Chem 7: 08/29/19 06:10 08/30/19 06:09 Labs: Abnormal Lab Results - Last 24 Hours (Table) 08/30/19 Range/Units 06:09 Sodium 135 L (137-145) mmol/L Assessment and Plan Plan: Assessment and plan #1 non-ST elevation myocardial infarction #2 history of coronary artery disease with prior RCA and circumflex stenting #3 hypertension #4 hyperlipidemia Plan Patient underwent angioplasty and stenting of the diagonal branch of the LAD. We'll continue to monitor the patient for another 24 hours. Echo shows 45-50%. DNP note has been reviewed, I agree with a documented findings and plan of care. Patient was seen and examined.
[2019-08-30] MEDS: ATORVASTATIN 40 MG TAB PO SCH (21:00)
[2019-08-30] MEDS: TAMSULOSIN 0.4 MG CAP.ER.24H PO SCH (21:00)
[2019-08-30 22:43] VITALS: RESP 16
[2019-08-30] MEDS: ZOLPIDEM 10 MG TAB PO SCH (23:31)
[2019-08-31] MEDS: PANTOPRAZOLE 40 MG TABLET PO SCH (06:24)
[2019-08-31] MEDS: CLOPIDOGREL 75 MG TAB PO SCH (08:52)
[2019-08-31] MEDS: HYDROCHLOROTHIAZIDE 12.5 MG CAP PO SCH (08:52)
[2019-08-31] MEDS: METOPROLOL TARTRATE 25 MG TAB PO SCH (08:52)
[2019-08-31] MEDS: BACLOFEN 10 MG TAB PO SCH (08:52)
[2019-08-31] MEDS ORDERED: ASPIRIN 81 MG PO SCH (09:00)
[2019-08-31 11:30] VITALS: BP 134/73; PULSE 61; TEMP 97.8
[2019-08-31] MEDS ORDERED: ATROPINE SULFATE 0.1 MG/ML 10ML SYRINGE ONE (11:33)
[2019-08-31] MEDS: LOSARTAN 50 MG TAB PO SCH (11:34)
--- NOTE | 2019-08-31 11:45 | P.PN ---
Subjective Progress Note Date: 08/31/19 This is a 73-year-old gentleman who follows regularly with Dr. Mendoza in the office. He has a known history of hypertension, hyperlipidemia, RCA stenting in 2010, circumflex stenting in 2014. He presented to the hospital with symptoms of chest pressure with radiation across the chest. Symptoms started around noon and persisted until around 4:00. He was seen in consultation by Dr. Smiley. His chest x-ray did not reveal any acute changes, CTA of the chest was performed which did not reveal any evidence of a PE. First EKG showed a normal sinus rhythm with no acute changes. Subsequent EKG showed normal sinus rhythm with mild inferior ST-T wave changes. White blood cell count 4.8, hemoglobin 13.7, platelet count 164. D-dimer 1.32. Sodium 134, potassium 4.1, BUN 28, creatinine 0.9. Troponin 0.02, 74.7, 18.4. Wall virus not detected. At the time of examination this morning patient was currently chest pain-free. A stat echocardiogram with Doppler study has been ordered and patient has been recommended to undergo cardiac catheterization. The risks and the benefits were explained to the patient in detail and he is willing to proceed. This will be performed today by Dr. Duncan. August 2910/2019 Patient was taken to the cardiac catheterization lab yesterday underwent angioplasty and stenting of a diagonal branch the LAD. He was seen and examined this morning, denied any chest discomfort. Blood pressure 130/70 with a heart rate in the 70s, 94% on room air. Sodium 135, potassium 3.8, BUN 18 and creatinine 0.7. 08/31/2019 Patient was seen and examined this morning, denies any chest discomfort breathing is stable, he's been up ambulating in his room without any difficulty. Blood pressure 132/72 heart rate in the 60s, 98% on room air. Objective - Vital Signs Vital signs: Vital Signs Temp 97.8 F 08/31/19 11:29 Pulse 61 08/31/19 11:29 Resp 16 08/31/19 11:29 BP 134/73 08/31/19 11:29 Pulse Ox 98 08/31/19 11:29 Intake & Output 08/30/19 08/31/19 08/31/19 18:59 06:59 18:59 Intake Total 480 360 Output Total 700 Balance 480 -700 360 Weight 74 kg Intake: Oral 480 360 Output: Urine 700 Other: Voiding Method Toilet # Voids 1 2 - Exam PHYSICAL EXAMINATION: GENERAL: 73-year-old gentleman in no acute distress at the time of my examination HEENT: Head is atraumatic, normocephalic. Pupils equal, round. Sclera anicteric. Conjunctiva are clear. Mucous membranes of the mouth are moist. Neck is supple. There is no elevated jugular venous pressure. No carotid bruit is heard. HEART EXAMINATION: Heart S1, S2 normal. No murmur or gallop heard. CHEST EXAMINATION: Lungs are clear to auscultation and precussion. No chest wall tenderness is noted on palpation or with deep breathing. ABDOMEN: Soft, nontender. Bowel sounds are heard. No organomegaly noted. EXTREMITIES: 2+ peripheral pulses with no evidence of peripheral edema and no calf tenderness noted. Right groin soft, no evidence of any hematoma. NEUROLOGIC patient is awake, alert and oriented 3 . . - Labs CBC & Chem 7: 08/29/19 06:10 08/30/19 06:09 Assessment and Plan Plan: Assessment and plan #1 non-ST elevation myocardial infarction #2 history of coronary artery disease with prior RCA and circumflex stenting #3 hypertension #4 hyperlipidemia Plan Patient underwent angioplasty and stenting of the diagonal branch of the LAD. He may be able to be discharged home today from cardiology's perspective. He will follow-up with his specialty trimmer as scheduled on Tuesday of next week. DNP note has been reviewed, I agree with a documented findings and plan of care. Patient was seen and examined.
--- NOTE | 2019-08-31 12:22 | P.DS ---
Providers Date of admission: 08/28/19 16:23 Attending physician: Fady Merrill Consults: 08/28/19 14:44 Consult Physician Stat Consulting Provider: Nell Espitia Consult Reason/Comments: STEMI ACTIVATION COMPLETE Do you want consulting provider notified?: Yes 08/29/19 14:58 Consult Physician Routine Consulting Provider: Nell Espitia Consult Reason/Comments: Post Interventional patient Do you want consulting provider notified?: Already Contacted Primary care physician: Misha Brown [facility] Course: 72-year-old pleasant gentleman is admitted for non-ST elevation myocardial infarction patient underwent cardiac catheterization found to have significant stenosis in the obtuse marginal branch of LAD which was stented. Patient has decreased ejection fraction of 45-50%. Patient is clinically doing well is chest pain-free no shortness of breath. 08/31/2019 Patient is clinically doing well patient is cleared for discharge from cardiology perspective patient will be discharged today. PHYSICAL EXAMINATION: GENERAL: The patient is alert and oriented x3, not in any acute distress. Well developed, well nourished. HEENT: Pupils are round and equally reacting to light. EOMI. No scleral icterus. No conjunctival pallor. Normocephalic, atraumatic. No pharyngeal erythema. No thyromegaly. CARDIOVASCULAR: S1 and S2 present. No murmurs, rubs, or gallops. PULMONARY: Chest is clear to auscultation, no wheezing or crackles. ABDOMEN: Soft, nontender, nondistended, normoactive bowel sounds. No palpable organomegaly. MUSCULOSKELETAL: No joint swelling or deformity. EXTREMITIES: No cyanosis, clubbing, or pedal edema. NEUROLOGICAL: Gross neurological examination did not reveal any focal deficits. SKIN: No rashes. Assessment and Plan Plan: Acute non-ST elevation myocardial infarction patient is status post cardiac catheterization and stenting of major diagonal branch of LAD continue, patient will be discharged today and yearly antiplatelet therapy Lipitor beta loly and losartan -Coronary artery disease with multiple stents in the past -Possible acute systolic heart failure without any pulmonary edema or acute exacerbation. This is probably related to the acute [place] -Hypertension -Hyperlipidemia -Benign prostatic hypertrophy Patient Condition at Discharge: Fair Plan - Discharge Summary Discharge Rx Participant: No New Discharge Prescriptions: New Atorvastatin [Lipitor] 40 mg PO HS #30 tab Metoprolol Tartrate [Lopressor] 25 mg PO BID #60 tab Nitroglycerin Sl Tabs [Nitrostat] 0.4 mg SUBLINGUAL Q5M PRN #30 tab PRN Reason: Chest Pain Clopidogrel [Plavix] 75 mg PO DAILY #30 tab Continue Losartan Potassium [Cozaar] 100 mg PO DAILY Tamsulosin [Flomax] 0.4 mg PO HS cap.er.24h [place]-3 Fatty Acids/Fish Oil [Fish Oil 1,000 mg Softgel] 1 cap PO DAILY Multivitamin [Men's Multi-Vitamin] 1 tab PO DAILY Vitamin B Complex 1 cap PO DAILY Baclofen 10 mg PO TID Primidone [Mysoline] 50 mg PO TID PRN PRN Reason: HAND TREMBLING Aspirin EC [Ecotrin Low Dose] 81 mg PO DAILY Omeprazole Magnesium [PriLOSEC OTC] 20 mg PO DAILY Ezetimibe [Zetia] 10 mg PO HS Glucosam/Fred-Msm1/C/Bert/Bosw [Glucosamine-Chondroitin Tablet] 1 tab PO DAILY Discontinued Hydrochlorothiazide [Hydrodiuril] 12.5 mg PO DAILY Meloxicam [Mobic] 15 mg PO DAILY Discharge Medication List Losartan Potassium [Cozaar] 100 mg PO DAILY 11/22/14 [History] Tamsulosin [Flomax] 0.4 mg PO HS cap.er.24h 11/29/14 [Rx] Multivitamin [Men's Multi-Vitamin] 1 tab PO DAILY 08/13/15 [History] [place]-3 Fatty Acids/Fish Oil [Fish Oil 1,000 mg Softgel] 1 cap PO DAILY 08/13/15 [History] Vitamin B Complex 1 cap PO DAILY 08/13/15 [History] Aspirin EC [Ecotrin Low Dose] 81 mg PO DAILY 01/27/16 [History] Baclofen 10 mg PO TID 01/27/16 [History] Primidone [Mysoline] 50 mg PO TID PRN 01/27/16 [History] Ezetimibe [Zetia] 10 mg PO HS 08/28/19 [History] Glucosam/Fred-Msm1/C/Bert/Bosw [Glucosamine-Chondroitin Tablet] 1 tab PO DAILY 08/28/19 [History] Omeprazole Magnesium [PriLOSEC OTC] 20 mg PO DAILY 08/28/19 [History] Atorvastatin [Lipitor] 40 mg PO HS #30 tab 08/31/19 [Rx] Clopidogrel [Plavix] 75 mg PO DAILY #30 tab 08/31/19 [Rx] Metoprolol Tartrate [Lopressor] 25 mg PO BID #60 tab 08/31/19 [Rx] Nitroglycerin Sl Tabs [Nitrostat] 0.4 mg SUBLINGUAL Q5M PRN #30 tab 08/31/19 [Rx] Follow up Appointment(s)/Referral(s): Misha Brown MD [Primary Care Provider] - 3 Days (Please contact office Tuesday for appointment time) Jarrett Duncan MD [STAFF PHYSICIAN] - 09/05/19 2:00 pm (Patient will be seeing own [employer] Manager Dr Kirit Ray at [facility] on Tuesdayseptember 04 at [address] Duncan) Patient Instructions/Handouts: *[facility]gery [facility] - After Heart Catheterization - Director Of Vendor Management Instructions, Heart Healthy Diet (DC), Coronary Intravascular Stent Placement (DC) Discharge Disposition: HOME SELF-CARE
== END 2019-08-31 13:49 | disposition home or self-care (01) | DRG 246 ==
LOC: EC 14:34 → 3SCARD 16:23
PROVIDERS: ADMIT Internal Medicine; ATTEND Internal Medicine
PROC: B2111ZZ Fluoroscopy of Multiple Coronary Arteries using Low Osmolar Contrast (ICD-10-PCS; 2019-08-29)
PROC: 027035Z Dilation of Coronary Artery, One Artery with Two Drug-eluting Intraluminal Devices, Percutaneous Approach (ICD-10-PCS; principal; 2019-08-29 07:30)
PROC: 4A023N7 Measurement of Cardiac Sampling and Pressure, Left Heart, Percutaneous Approach (ICD-10-PCS; 2019-08-29 07:30)
DX: I21.4 Non-ST elevation (NSTEMI) myocardial infarction (principal); I50.21 Acute systolic (congestive) heart failure; Z11.59 Encounter for screening for other viral diseases; E78.5 Hyperlipidemia, unspecified; I10 Essential (primary) hypertension; M19.90 Unspecified osteoarthritis, unspecified site; K21.9 Gastro-esophageal reflux disease without esophagitis; I25.10 Atherosclerotic heart disease of native coronary artery without angina pectoris; N40.0 Benign prostatic hyperplasia without lower urinary tract symptoms; I25.2 Old myocardial infarction; Z79.1 Long term (current) use of non-steroidal anti-inflammatories (NSAID); Z79.899 Other long term (current) drug therapy; Z79.82 Long term (current) use of aspirin; Z95.5 Presence of coronary angioplasty implant and graft; Z98.890 Other specified postprocedural states; Z83.6 Family history of other diseases of the respiratory system
CPT/HCPCS: 36415; 71045; 71275; 80048; 80053; 80061; 83735; 84484; 85025; 85379; 85610; 85730; 87635; 93005; 93306; 93458; 96365; 96366; 96376; 99291

== ENCOUNTER → 2023-01-13 | Outpatient (CLI) | payer MEDICARE ==
--- NOTE | 2023-01-13 18:40 | CT ---
EXAMINATION TYPE: CT shoulder LT wo con CT DLP: 449 mGycm, Automated exposure control for dose reduction was used. DATE OF EXAM: 01/13/2023 4:16 PM COMPARISON: None CLINICAL INDICATION:Male, 77 years old with history of M75.122 COMPLETE ROTATR-CUFF TEAR/RUPTR; PHH, COMPLETE ROTATR-CUFF TEAR TECHNIQUE: Axial images were obtained of the left shoulder . Additional coronal and sagittal reforma tted images and soft tissue and bone window were obtained for review. 3-D reconstruction was created on a separate workstation. Contrast used: None Oral contrast used: None FINDINGS: End-stage left shoulder osteoarthrosis with foor-pn-wkah articulation with subchondral cyst ic changes starting. There is sclerosis of the glenoid. Osteophytes of the glenoid and humerus are pr esent. Additional osteophytes and subchondral cystic changes of the distal clavicle. There is mild at rophy changes of the supraspinatus and infraspinatus muscles. There is acetabularization of the acrom ion with the humeral head and complete loss of acromial humeral interval space. No evidence of fractu re. Visualized portions of the chest grossly unremarkable. IMPRESSION: Severe degeneration changes of the left shoulder with suspected areas of full-thickness cartilage los s and full-thickness rotator cuff tear.
== END | disposition home or self-care (01) ==
LOC: RADCTMAIN 15:51
PROVIDERS: ATTEND Orthopaedic Surgery Sports Medicine
DX: M19.012 Primary osteoarthritis, left shoulder (principal); M75.122 Complete rotator cuff tear or rupture of left shoulder, not specified as traumatic

== ENCOUNTER 2023-02-03 07:36 | Day surgery (SDC) | payer MEDICARE ==
[~2023-02-03 07:36] MED LIST: ACETAMINOPHEN TAB 500 MG TAB PO PRN; DEXAMETHASONE SOD PHOSPHATE 4 MG/ML 1 ML VIAL IV ONE; GABAPENTIN 300 MG CAP PO PRN; HYDROmorphone 0.5 MG/0.5 ML SYRINGE IVP PRN; LIDOCAINE 1% (10MG/ML) FOR IV START INTRADERMA PRN; MELOXICAM 7.5 MG TAB PO PRN; MIDAZOLAM 2 MG/2 ML VIAL IV PRN; ONDANSETRON 4 MG/2 ML VIAL IVP ONE; ONDANSETRON 4 MG/2 ML VIAL IVP PRN; TRANEXAMIC 1,000 MG/100ML-NACL 1,000 MG in SALINE 1 100ML.BAG IVPB PRN
[2023-02-03] MEDS ORDERED: LACTATED RINGERS 1,000 ML IV ONE (08:06)
[2023-02-03 08:24] LABS: Glucose,Whole Blood 108 mg/dL (70-110)
--- NOTE | 2023-02-03 08:56 | P.ANPRN ---
Procedure Note - Anesthesia - Nerve Block Performed Left Interscalene Single Time Out Performed: Yes Date of Procedure: 02/03/23 Procedure Start Time: 08:37 Procedure Stop Time: 08:45 Location of Patient: PreOp Indication: Acute Post-Operative Pain, Requested by Surgeon Sedation Type: Sedate with meaningful contact maintained Preparation: Sterile Prep, Sterile Dressing Position: Sitting Catheter: None Needle Types: Facet Needle Gauge: 21 Ultrasound used to visualize needle placement: Yes Ultrasound used to observe medication spread: Yes Injectate: 0.5% Ropivacaine (see comment for volume) (30 ml + decadron 4 mg) Blood Aspirated: No Pain Paresthesia on Injection Noted: No Resistance on Injection: Normal Image Stored and Saved: Yes Events: Uneventful and Well Tolerated
[2023-02-03] MEDS ORDERED: SENNOSIDES-DOCUSATE SODIUM 1 EACH TAB PO PRN (09:08)
[2023-02-03] MEDS ORDERED: HYDROmorphone 0.5 MG/0.5 ML SYRINGE IVP PRN ×3 (09:08)
[2023-02-03] MEDS ORDERED: diphenhydrAMINE 25 MG CAP PO PRN (09:08)
[2023-02-03] MEDS ORDERED: ONDANSETRON 4 MG/2 ML VIAL IVP PRN (09:08)
[2023-02-03] MEDS ORDERED: METOCLOPRAMIDE 5 MG/ML 2 ML VIAL IVP PRN (09:08)
[2023-02-03] MEDS ORDERED: HYDROcodone/APAP 7.5-325MG 1 EACH TAB PO PRN (09:12)
[2023-02-03] MEDS ORDERED: DEXAMETHASONE SOD PHOSPHATE 4 MG/ML 1 ML VIAL ONE (09:24)
[2023-02-03] MEDS ORDERED: VASOPRESSIN 20 UNIT/ML 1 ML VIAL ONE (09:24)
[2023-02-03] MEDS ORDERED: GLYCOPYRROLATE 0.2 MG/ML 2 ML VIAL ONE (09:24)
[2023-02-03] MEDS ORDERED: NEOSTIGMINE 1 MG/ML 10 ML VIAL ONE (09:24)
[2023-02-03] MEDS ORDERED: fentaNYL (PF) 50 MCG/ML 2 ML AMP ONE (09:24)
[2023-02-03] MEDS ORDERED: ePHEDrine 50 MG/ML 1 ML VIAL ONE (09:24)
[2023-02-03] MEDS ORDERED: LIDOCAINE 1% INJ 10MG/ML (20 ML MDV) ONE (09:24)
[2023-02-03] MEDS ORDERED: ROPIVACAINE 5 MG/ML 30 ML VIAL ONE (09:24)
[2023-02-03] MEDS ORDERED: ROCURONIUM 10 MG/ML (5 ML VIAL) IV ONE (09:24)
[2023-02-03] MEDS ORDERED: PROPOFOL 10 MG/ML 20 ML VIAL IV ONE (09:24)
[2023-02-03] MEDS ORDERED: SUCCINYLCHOLINE CHLORIDE 200 MG/10 ML VIAL IV ONE (09:24)
[2023-02-03] MEDS ORDERED: TRANEXAMIC 1,000 MG/100ML-NACL PREMIX BAG ONE (09:24)
[2023-02-03] MEDS ORDERED: ceFAZolin 1,000 MG in SODIUM CHLORIDE 0.9% 1,000 ML IRRIGATION ONE (09:45)
[2023-02-03] MEDS ORDERED: VANCOMYCIN 1,000 MG VIAL MISCELLANE ONE (10:18)
[2023-02-03 11:55] LABS: Glucose,Whole Blood 155 mg/dL (70-110)
--- NOTE | 2023-02-03 12:08 | OP ---
OPERATIVE REPORT DATE OF SERVICE : 02/03/2023 PREC[facility] APPRENTICE: Kian Dillon PA-C PREOPERATIVE DIAGNOSIS: Left shoulder advanced rotator cuff arthropathy. POSTOPERATIVE DIAGNOSIS: Left shoulder advanced rotator cuff arthropathy. PROCEDURE PERFORMED: Left reverse total shoulder arthroplasty. ANESTHESIA GENERAL: Endotracheal. ESTIMATED BLOOD LOSS: 100 mL. DRAINS: None. COMPLICATIONS: None apparent. DISPOSITION: Postanesthesia care unit. INDICATIONS: Magnus is a very pleasant 77-year-old male with longstanding left shoulder pain. Workup including x-rays revealed advanced rotator cuff arthropathy of the left shoulder. At this point, it was felt that he has failed conservative management. He would like to proceed with operative intervention. Risks of procedure were discussed with him in detail. These risks include but are not limited to risk of infection, nerve damage, bleeding, pain, instability in the shoulder, loosening of the implants, and deep infection. There is also small risk of deep vein thrombosis which could lead to fatal pulmonary emboli. The patient understood these risks. All of his questions with regard to the risks of procedure were answered to his satisfaction. An appropriate informed consent was obtained. DESCRIPTION OF THE PROCEDURE: The patient was identified in preoperative holding area. Surgical site was marked by both the patient and myself. He was given 2 g of Ancef IV for prophylactic purposes. He was then transported to the operative suite. He was placed supine on the operating table. A general anesthetic was then administered and dosed per Anesthesia without apparent complication. Examination under anesthesia was then performed of the left shoulder. Elevation was to 90 degrees. External rotation to the side was to 20 degrees. The patient was then placed into the beach chair position, well-padded in preparation for surgery. Great care was taken to ensure that the cervical spine was in neutral alignment, well-padded and maintained that way throughout the operative procedure. Great care was also taken to ensure that his legs were appropriately padded as well. The patient's left upper extremity was then prepped and draped in the usual sterile fashion. Standard surgical pause was undertaken to ensure that we were operating the correct site and that appropriate preoperative antibiotics had been given. All staff in the room were in agreement, and we proceeded. The acromion AC joint clavicle and coracoid were marked with a surgical pen. A planned incision starting at the level of the clavicle and extending distally over the deltopectoral interval approximately 1 cm lateral to the coracoid was marked with a surgical pen. The incision was then made with a 10-blade scalpel. This was dissection was carried down sharply to the deltoid fascia. The deltopectoral interval was then identified at the level of clavicle. A small band retractor was then placed onto the proximal deltoid. I then released the deltoid fascia on the lateral aspect of the cephalic vein. The cephalic vein was protected and left in its bed medially. The cephalic vein was then protected throughout the entire case. He had fairly dense subdeltoid adhesions. This was likely secondary to his advanced rotator cuff arthropathy as well as the fact that he underwent an open rotator cuff repair over 30 years ago. I then identified the clavipectoral fascia. This was incised proximally to the level of the coracoacromial ligament. The coracoacromial ligament was then left intact. I then used my finger to spread the interval between the conjoint tendon and the subscapularis. I felt for the axillary nerve which was readily palpable. I then cleared the subacromial and subdeltoid spaces of bursal and scar tissue. I then utilized a Dupree retractor to hold the deltoid and expose the humeral head. I then proceeded with the release of the subscapularis and the anterior-inferior shoulder capsule. The proximal humerus was nearly completely devoid of any rotator cuff attachments including the subscapularis, supraspinatus, and infraspinatus. The rotator interval was identified. The course of the biceps tendon was also identified. He had a traumatic rupture of the biceps, long head biceps tendon was absent. He had a traumatic rupture of the long head of the biceps tendon. I then released the capsule to the base of the coracoid. This was then carried out laterally. I was remaining of the subscapularis and the anterior capsule were then released intratendinously. The subscapularis and capsular release extended distally in a lazy-S fashion approximately 1 cm medial to the bicipital groove. I then continued to release the capsule along the inferior neck in a vertical fashion to approximately the 6 o'clock position. Great care was taken to ensure that the capsule was always visualized as it was released as to avoid injuring the axillary nerve. I then brought the [place] director of strategic marketing with the arm externally rotated and abducted. I continued to release the capsule inferomedially to approximately the 4 o'clock position. He had very minimal inferior osteophytes. These were removed at this time. I then proceeded with preparation of the humerus. I then removed the subchondral plate from the superior aspect of the humeral head utilizing a large rongeur. I then used a starting reamer to gain access to the humeral canal. This was approximately 1 cm medial to the rotator cuff insertion and 1 cm posterior to the bicipital groove. I then prepared the humeral canal with hand reaming. I started with a 6 mm reamer and incrementally increased in 1 mm increments until firm resistance was encountered at 12 mm. The reamer handle was then left in place. I then utilized a humeral resection guide set at 30 degrees of retrotorsion. The cutting block was then set approximately 1 mm above the insertion of rotator cuff. I then proceeded to osteotomize the humeral head with an oscillating saw. I then removed the resection guide and completed the osteotomy. At this point, I did remove the remaining inferior osteophytes. Again, we had very minimal inferior osteophytes. This done with a rongeur. I then proceeded with trial stem placed. I broached the canal starting with an 8 mm broach and incrementally increased up to a 12 mm broach. The 12 mm trial stem was then left in place. I then made a decision to proceed with a reverse total shoulder arthroplasty. A bone hook was then used to pull the humerus out laterally. I then continued to inspect the joint for any loose bodies. The Bhattman retractor was then placed on the posterior glenoid rim. The arm was then placed in approximately 80 degrees of abduction and in slight flexion on the [place] stand. I then proceeded to remove the hypertrophic labrum to definitively identify the actual glenoid. He did have some mild posterior glenoid wear. The starting pin was then placed in approximately 10 degrees of inferior tilt and aimed preferentially to take slightly more anterior glenoid bone. I then reamed the glenoid with the mini base plate reamer. Reaming was done as minimal as possible as to revert much subchondral bone as possible. I then proceeded to place the mini base plate. A small augment seemed appropriate. It fit very nicely. I then impacted a mini small augmented base plate. This was then impacted into the real glenoid. I then placed the central screw. 25 mm central screw was placed. The screw had excellent purchase in bone. I was able to rotate the scapula through the screwdriver when the screw was fully seated. I then proceeded to place the peripheral locking screws. The anterior, posterior, and inferior screws were placed. The inferior screw was 25 mm and the posterior and anterior screws were 15 mm. I then proceeded with placement of the real glenosphere. A 36 mm glenosphere was chosen. I preferentially offset it slightly so that it would offset inferiorly. The Hauser taper was dried and then the real glenosphere was impacted onto the base plate. The Hauser taper was firm and I was unable to remove the glenosphere after it was tamped down. I then proceeded with trial with the real glenosphere in it. The shoulder was thoroughly irrigated with sterile saline solution with antibiotic added via pulse lavage. I did utilize some of the Irrisept antiseptic solution at this point. I then placed a standard tray and standard poly trial onto the trial stem. The shoulder was then reduced. It was a moderately difficult reduction. The shoulder was very stable throughout a full range of motion. There was no impingement noted. The shoulder was then redislocated very carefully. I then made a decision to proceed with the standard tray and standard poly. The trial components were then removed. Again, the wound was thoroughly irrigated with sterile saline solution with antibiotic added via pulse lavage. Again, I utilized the Irrisept antiseptic solution at this point. I then had the direct marketing representative open a size 12 mini stem, a standard tray and a standard poly for 36 mm glenosphere. The stem was then impacted into the proximal humerus in approximately 30 degrees of retrotorsion. The Hauser taper was then dried and the base plate polyethylene was then impacted onto the real stem. The shoulder was then reduced. Again, it was a mildly difficult reduction. It was taken through a full range of motion. It was very stable. There was no undue tension on the conjoint tendon. I felt for the axillary nerve which was readily palpable and intact. At this point, no further work was deemed necessary. The shoulder was again thoroughly irrigated with remaining Irrisept solution. Approximately 500 mg of vancomycin powder was then placed deep. The deltopectoral interval was then reapproximated with 0 Vicryl interrupted suture. The remaining 500 mg of vancomycin powder was then placed subcutaneously. Subcutaneous tissue was then closed with 2-0 Vicryl interrupted suture and the skin was closed with a running 3-0 Quill suture. Dermabond was applied on the incision. Sterile dressing was applied. The patient's left upper extremity was placed in a standard sling. All sponge and needle counts were deemed correct prior to closure. The patient tolerated the procedure without apparent complication. He was transferred to recovery room in stable condition. MMODL / IJN: [id number] /
--- NOTE | 2023-02-03 12:12 | XR ---
EXAMINATION TYPE: XR shoulder limited LT DATE OF EXAM: 02/03/2023 COMPARISON: NONE HISTORY: 77-year-old male postoperative evaluation TECHNIQUE: Single AP view FINDINGS: Image shows placement of reverse left shoulder arthroplasty. Martine fearing humeral stem c omponents of the prostate appear well seated without periprosthetic fracture. Alignment appears appro priate. Soft tissue air related to recent operation. Unable to exclude some opacity at the left mid a nd lower lung. IMPRESSION: 1. Uncomplicated reverse left total shoulder arthroplasty. 2. Unable to exclude abnormal opacity at the left mid and lower lung. If any respiratory signs/sympto ms, dedicated chest radiograph can be performed.
[2023-02-03] MEDS: LACTATED RINGERS 1,000 ML IV SCH ×3 (13:14→22:05)
[2023-02-03] MEDS: BENZOCAINE/MENTHOL LOZENG 1 EACH LOZENGE MUCOUS MEM PRN ×3 (13:19→23:01)
[2023-02-03] MEDS: HYDROcodone/APAP 7.5-325MG 1 EACH TAB PO PRN (23:01)
[2023-02-04] MEDS: BENZOCAINE/MENTHOL LOZENG 1 EACH LOZENGE MUCOUS MEM PRN ×2 (03:11→06:41)
[2023-02-04] MEDS: HYDROcodone/APAP 7.5-325MG 1 EACH TAB PO PRN ×3 (03:11→10:39)
[2023-02-04] MEDS: LACTATED RINGERS 1,000 ML IV SCH ×2 (03:14)
[2023-02-04 09:12] VITALS: BP 118/68; PULSE 95; RESP 18; TEMP 98.2
[2023-02-04 11:29] LABS: Basophils # (A) 0.02 X 10*3/uL (0.00-0.10); Basophils % (A) 0.2 %; Eosinophils # (A) 0.01 X 10*3/uL (0.04-0.35); Eosinophils % (A) 0.1 %; HCT 34.3 % (39.6-50.0); Lymphocytes # (A) 1.33 X 10*3/uL (0.90-5.00); Lymphocytes % (A) 15.1 %; MCH 26.7 pg (27.0-32.0); MCHC 32.1 d/dL (32.0-37.0); MCV 83.3 FL (80.0-97.0); Mean Platelet Volume 11.3 FL (9.5-12.2); Monocytes # (A) 1.06 X 10*3/uL (0.20-1.00); NRBC Per 100 WBC 0 X 10*3/uL (0.00-0.01); Neutrophils # (A) 6.37 X 10*3/uL (1.80-7.70); Neutrophils % (A) 72.1 %; Platelet Count 183 X 10*3/uL (140-440); RBC 4.12 X 10*6/uL (4.40-5.60); RDW 16.1 % (11.5-14.5); WBC 8.83 X 10*3/uL (4.50-10.00)
[2023-02-04] MEDS ORDERED: ZOLPIDEM 5 MG TAB PO PRN (12:24)
[2023-02-04] MEDS ORDERED: NITROGLYCERIN SL TABS 0.4 MG TAB SUBLINGUAL PRN (12:24)
[2023-02-04] MEDS ORDERED: EZETIMIBE 10 MG TAB PO SCH (13:00)
--- NOTE | 2023-02-04 14:26 | P.DS ---
Providers Expected date of discharge: 02/04/23 Attending physician: Bienvenido Lara Consults: 02/03/23 09:08 Consult Physician Routine Consulting Provider: Hayley Dean Consult Reason/Comments: post op medical management Do you want consulting provider notified?: Yes Primary care physician: Ishmael Yeager [place]ut - Discharge Diagnosis(es) (1) Osteoarthritis of left shoulder Patient was admitted to the OR on 02/03/23 to undergo a left reverse total shoulder arthroplasty. He had failed conservative measures as an outpatient and desired to proceed with elective surgery after given informed consent. He underwent the above procedure which he tolerated well without complication. Postoperative hospital course has remained without complication. On day of discharge he is afebrile, vital signs stable, labs within acceptable ranges, tolerating by mouth meds and diet, voiding without difficulty, positive flatus, denies abdominal pain or calf pain, pain is controlled on oral pain medication and has no new complaints. Wound is benign, neurovascular status is intact, calf is soft and nontender, abdomen soft and nontender. Review of systems is negative for numbness, tingling, fever, chills, chest pain, shortness of breath, nausea, vomiting, dizziness, headaches, slurred speech or other. Status: Acute Priority: Medium Procedures: left RTSA Patient Condition at Discharge: Good Plan - Discharge Summary Discharge Rx Participant: Yes New Discharge Prescriptions: New Doxycycline Hyclate 100 mg PO BID #10 tab Ondansetron [Zofran] 4 mg PO Q8HR PRN #21 tab PRN Reason: Nausea Docusate [Colace] 100 mg PO BID #60 capsule HYDROcodone/APAP 7.5-325MG [[place]io 7.5-325] 1 - 2 each PO Q6HR PRN #42 tab PRN Reason: Pain No Action Losartan Potassium [Cozaar] 100 mg PO DAILY Tamsulosin [Flomax] 0.4 mg PO HS cap.er.24h [place]-3 Fatty Acids/Fish Oil [Fish Oil 1,000 mg Softgel] 1 cap PO DAILY Multivitamin [Men's Multi-Vitamin] 1 tab PO DAILY Vitamin B Complex 1 cap PO DAILY Baclofen 10 mg PO DAILY Primidone [Mysoline] 50 mg PO BID Aspirin EC [Ecotrin Low Dose] 81 mg PO DAILY Atorvastatin [Lipitor] 40 mg PO HS #30 tab Metoprolol Tartrate [Lopressor] 25 mg PO BID #60 tab Nitroglycerin Sl Tabs [Nitrostat] 0.4 mg SUBLINGUAL Q5M PRN #30 tab PRN Reason: Chest Pain Gabapentin [Neurontin] 100 mg PO BID amLODIPine BESYLATE 2.5 mg PO HS Zolpidem(Unk) 10 mg PO HS PRN PRN Reason: Insomnia Vit C (Unk) 1 tab PO DAILY Acetaminophen [Tylenol 8 Hour] 1,300 mg PO BID PRN PRN Reason: pain Ezetimibe [Zetia] 10 mg PO DAILY Meloxicam [Mobic] 15 mg PO HS Discharge Medication List Losartan Potassium [Cozaar] 100 mg PO DAILY 11/22/14 [History] Tamsulosin [Flomax] 0.4 mg PO HS cap.er.24h 11/29/14 [Rx] Multivitamin [Men's Multi-Vitamin] 1 tab PO DAILY 08/13/15 [History] [place]-3 Fatty Acids/Fish Oil [Fish Oil 1,000 mg Softgel] 1 cap PO DAILY 08/13/15 [History] Vitamin B Complex 1 cap PO DAILY 08/13/15 [History] Aspirin EC [Ecotrin Low Dose] 81 mg PO DAILY 01/27/16 [History] Baclofen 10 mg PO DAILY 01/27/16 [History] Primidone [Mysoline] 50 mg PO BID 01/27/16 [History] Atorvastatin [Lipitor] 40 mg PO HS #30 tab 08/31/19 [Rx] Metoprolol Tartrate [Lopressor] 25 mg PO BID #60 tab 08/31/19 [Rx] Nitroglycerin Sl Tabs [Nitrostat] 0.4 mg SUBLINGUAL Q5M PRN #30 tab 08/31/19 [Rx] Acetaminophen [Tylenol 8 Hour] 1,300 mg PO BID PRN 01/28/23 [History] Ezetimibe [Zetia] 10 mg PO DAILY 01/28/23 [History] Gabapentin [Neurontin] 100 mg PO BID 01/28/23 [History] Meloxicam [Mobic] 15 mg PO HS 01/28/23 [History] Vit C (Unk) 1 tab PO DAILY 01/28/23 [History] Zolpidem(Unk) 10 mg PO HS PRN 01/28/23 [History] amLODIPine BESYLATE 2.5 mg PO HS 01/28/23 [History] Doxycycline Hyclate 100 mg PO BID #10 tab 02/03/23 [Rx] Docusate [Colace] 100 mg PO BID #60 capsule 02/04/23 [Rx] HYDROcodone/APAP 7.5-325MG [[place]io 7.5-325] 1 - 2 each PO Q6HR PRN #42 tab 02/04/23 [Rx] Ondansetron [Zofran] 4 mg PO Q8HR PRN #21 tab 02/04/23 [Rx] Follow up Appointment(s)/Referral(s): Bienvenido Lara MD [STAFF PHYSICIAN] - 02/15/23 1:25 pm Patient Instructions/Handouts: *Sur[facility] - Shoulder Arthroscopy Discharge Disposition: HOME SELF-CARE
[2023-02-04] MEDS ORDERED: PRIMIDONE 50 MG TAB PO SCH (21:00)
[2023-02-04] MEDS ORDERED: TAMSULOSIN 0.4 MG CAP.ER.24H PO SCH (21:00)
[2023-02-04] MEDS ORDERED: amLODIPine 2.5 MG TAB PO SCH (21:00)
[2023-02-04] MEDS ORDERED: METOPROLOL TARTRATE 25 MG TAB PO SCH (21:00)
[2023-02-04] MEDS ORDERED: GABAPENTIN 100 MG CAP PO SCH (21:00)
[2023-02-04] MEDS ORDERED: ATORVASTATIN 40 MG TAB PO SCH (21:00)
[2023-02-04] MEDS ORDERED: MELOXICAM 7.5 MG TAB PO SCH (21:00)
[2023-02-05] MEDS ORDERED: BACLOFEN 10 MG TAB PO SCH (09:00)
[2023-02-05] MEDS ORDERED: NON FORMULARY DRUG (Omega-3 Fatty Acids/Fish Oil [Fish Oil 1,000 Mg Softgel] 1 EACH Capsul PO SCH (09:00)
[2023-02-05] MEDS ORDERED: NON FORMULARY DRUG (Vitamin B Complex [Vitamin B Complex] 1 EACH Capsule) PO SCH (09:00)
[2023-02-05] MEDS ORDERED: MULTIVITAMINS, THERA 1 EACH TAB PO SCH (09:00)
[2023-02-05] MEDS ORDERED: LOSARTAN 50 MG TAB PO SCH (09:00)
[2023-02-05] MEDS ORDERED: ASCORBIC ACID 500 MG TAB PO SCH (09:00)
== END 2023-02-04 13:41 | disposition home or self-care (01) ==
LOC: OR 07:36 → 4SSUR 11:51 → OR 02-04 13:41
PROVIDERS: ATTEND Orthopaedic Surgery Sports Medicine
DX: M19.012 Primary osteoarthritis, left shoulder (principal); G89.18 Other acute postprocedural pain; Z79.899 Other long term (current) drug therapy; Z79.82 Long term (current) use of aspirin
CPT/HCPCS: 64415; 85025; 73020; 23472; C1776; J2250; J3370; J1100; J0690 ×2; J2405